=== PATIENT | male | born 1935 | race Caucasian/White ===

== ENCOUNTER 2017-08-28 15:05 | Emergency (ER) | payer MEDICARE ==
[2016-07-24 13:44] VITALS: BMI 28.2
--- NOTE | 2017-08-28 15:14 | ER Report ---
History and Physical Time Seen By MD: 15:14 HPI/ROS CHIEF COMPLAINT: Chest pain HISTORY OF PRESENT ILLNESS: 81-year-old male patient presents to emergency room with complaint of chest pain. Patient states that he developed chest pain today. Having also mentions he is had pain for the last 4 nights. He states is worse when he laid down. He states the pain seemed to radiate up into his neck and into his arms. He states that sitting up seemed to help considerably. Patient states that he woke this morning and just didn't feel right. He states he did go exercise and did not have any worsening of any of his symptoms. He states that he did develop some chest pain for which he took Tums. He states that that seemed to help with the pain. He denies any shortness of breath, nausea, vomiting or diarrhea. Patient states he's been able to exercise for the last 4 days without any difficulties. Patient states he initially thought that this was likely related to exercise and was a muscle strain. REVIEW OF SYSTEMS: Respiratory: No cough, no dyspnea. Cardiovascular: As noted above Gastrointestinal: No vomiting, no abdominal pain. Musculoskeletal: No back pain. Allergies: Coded Allergies: No Known Allergies (Verified Allergy, Mild, 01/11/12) Home Meds Active Scripts Spironolactone (SPIRONOLACTONE) 25 Mg Tablet, 1 TAB PO DAILY for 90 Days, #90 TAB 4 Refills Prov:EM GAN MD 07/15/17 Reported Medications Garlic (GARLIC) 1,000 Mg Capsule, 1 TAB PO DAILY, CAPSULE 05/28/17 Aspirin (ASPIR 81) 81 Mg Tablet.dr, 1 TAB PO QDAY, TAB 05/28/17 Cholecalciferol (Vitamin D3) (VITAMIN D) 2,000 Unit Tablet, 1 TAB PO DAILY 05/28/17 Vitamin E Acetate (VITAMIN E) 400 Unit Capsule, 1 CAP PO DAILY, CAPSULE 12/11/16 Multivit-Min/FA/Lycopen/Lutein (Centrum Silver Men Tablet) 300 Mcg-600 Mcg-300 Mcg Tablet, 1 TAB PO DAILY 12/11/16 Magnesium Oxide (MAGNESIUM) 250 Mg Tablet, 1 TAB PO DAILY 12/11/16 Cyanocobalamin (Vitamin B-12) (VITAMIN B-12) 1,000 Mcg Tablet, 1 TAB PO DAILY 12/11/16 Amlodipine Besylate (AMLODIPINE BESYLATE) 10 Mg Tablet, 1 TAB PO QDAY, TAB 12/11/16 Losartan Potassium (LOSARTAN POTASSIUM) 100 Mg Tablet, 1 TAB PO QDAY 06/04/16 Citalopram Hydrobromide (CITALOPRAM HBR) 20 Mg Tablet, 1 TAB PO QDAY 06/04/16 Discontinued Reported Medications Cetirizine Hcl (ZYRTEC) 10 Mg Tablet, 1 TAB PO QDAY, TAB 05/28/17 Past Medical/Surgical History Patient has a past medical history of hypertension, hayfever, hernia,, hepatitis , BPH, chronic back pain, alcohol use. Patient has surgical history of inguinal hernia repair, left knee surgery, right elbow surgery, L5-S1 laminectomy, tonsillectomy. Reviewed Nurses Notes: Yes Hx Smoking: No Smoking Status: Former Smoker Exposure to Second Hand Smoke?: No Hx Substance Use Disorder: No Hx Alcohol Use: Yes Constitutional Vital Sign - Last 24 Hours 08/28/17 08/28/17 08/28/17 08/28/17 15:10 15:10 15:20 15:30 Temp 98.7 Pulse 86 81 Resp 18 16 B/P (MAP) 152/92 152/94 (113) 134/83 (100) Pulse Ox 93 93 O2 Delivery Room Air 08/28/17 08/28/17 08/28/17 08/28/17 15:35 15:45 16:15 16:20 Pulse 80 76 Resp 16 11 B/P (MAP) 125/74 (91) 136/75 (95) Pulse Ox 92 08/28/17 08/28/17 08/28/17 08/28/17 16:30 16:35 16:45 16:50 Pulse 73 70 Resp 20 14 B/P (MAP) 134/78 (96) 134/78 (96) 08/28/17 08/28/17 08/28/17 17:00 17:05 18:15 Pulse 67 74 Resp 12 16 B/P (MAP) 138/87 (104) 140/80 (100) Intake and Output 08/28/17 08/28/17 08/29/17 14:59 22:59 06:59 Intake Total 500 ml Balance 500 ml Physical Exam General Appearance: The patient is alert, has no immediate need for airway protection and no current signs of toxicity. Respiratory: Chest is non tender, lungs are clear to auscultation. Cardiac: regular rate and rhythm Gastrointestinal: Abdomen is soft and non tender, no masses, bowel sounds normal. Musculoskeletal: Neck: Neck is supple and non tender. Extremities have full range of motion and are non tender. Skin: No rashes or lesions. DIFFERENTIAL DIAGNOSIS: After history and physical exam differential diagnosis was considered for chest pain including but not limited to myocardial ischemia, pericarditis pulmonary embolus, chest wall pain, pleural inflammation and pulmonary infectious causes. Medical Decision Making Data Points Result Diagram: 08/28/17 1315 08/28/17 1315 Laboratory Hematology Test 08/28/17 13:15 08/28/17 16:10 Red Blood Count 5.38 M/uL (4.00-5.60) Mean Corpuscular Volume 93.8 fL (80.0-96.0) Mean Corpuscular Hemoglobin 32.1 pg (26.0-33.0) Mean Corpuscular Hemoglobin Concent 34.2 g/dL (32.0-36.0) Red Cell Distribution Width 13.7 % (11.5-14.5) Mean Platelet Volume 9.5 fL (7.2-11.1) Neutrophils (%) (Auto) 66.3 % (39.4-72.5) Lymphocytes (%) (Auto) 22.0 % (17.6-49.6) Monocytes (%) (Auto) 8.1 % (4.1-12.4) Eosinophils (%) (Auto) 2.8 % (0.4-6.7) Basophils (%) (Auto) 0.8 % (0.3-1.4) Nucleated RBC Relative Count (auto) 0.0 /100WBC Neutrophils # (Auto) 8.8 K/uL (2.0-7.4) Lymphocytes # (Auto) 2.9 K/uL (1.3-3.6) Monocytes # (Auto) 1.1 K/uL (0.3-1.0) Eosinophils # (Auto) 0.4 K/uL (0.0-0.5) Basophils # (Auto) 0.1 K/uL (0.0-0.1) Nucleated RBC Absolute Count (auto) 0.00 K/uL Sodium Level 139 mmol/L (137-145) Potassium Level 3.7 mmol/L (3.5-5.0) Chloride Level 100 mmol/L (98-107) Carbon Dioxide Level 27 mmol/L (22-30) Blood Urea Nitrogen 24 mg/dl (9-21) Creatinine 1.50 mg/dl (0.66-1.25) Glomerular Filtration Rate Calc 44.9 Random Glucose 106 mg/dl (75-110) Calcium Level 9.4 mg/dl (8.4-10.2) Total Bilirubin 0.8 mg/dl (0.2-1.3) Aspartate Amino Transf (AST/SGOT) 28 U/L (0-35) Alanine Aminotransferase (ALT/SGPT) 29 U/L (0-56) Alkaline Phosphatase 72 U/L (0-126) Troponin I 0.412 ng/ml Total Protein 7.5 g/dl (6.3-8.2) Albumin 4.3 g/dl (3.5-5.0) Urine Color Yellow Urine Clarity Clear Urine pH 5.0 pH (4.8-9.5) Urine Specific [place] 1.012 Urine Protein Negative mg/dL (NEGATIVE) Urine Glucose (UA) Negative mg/dL (NEGATIVE) Urine Ketones Negative mg/dL (NEGATIVE) Urine Blood Negative (NEGATIVE) Urine Nitrite Negative (NEGATIVE) Urine Bilirubin Negative (NEGATIVE) Urine Urobilinogen Negative mg/dL (0.2-1.9) Urine Leukocyte Esterase Negative (NEGATIVE) Urine RBC <1 /HPF (0-2/HPF) Urine WBC 2 /HPF (0-5/HPF) Urine Squamous Epithelial Cells None /LPF (</=FEW) Urine Bacteria Negative /HPF (NONE-FEW) Urine Mucus None /HPF (NONE-FEW) Chemistry Test 08/28/17 13:15 08/28/17 16:10 White Blood Count 13.2 k/uL (4.5-11.0) Red Blood Count 5.38 M/uL (4.00-5.60) Hemoglobin 17.3 g/dL (14.0-18.0) Hematocrit 50.5 % (42.0-52.0) Mean Corpuscular Volume 93.8 fL (80.0-96.0) Mean Corpuscular Hemoglobin 32.1 pg (26.0-33.0) Mean Corpuscular Hemoglobin Concent 34.2 g/dL (32.0-36.0) Red Cell Distribution Width 13.7 % (11.5-14.5) Platelet Count 218 K/uL (150-450) Mean Platelet Volume 9.5 fL (7.2-11.1) Neutrophils (%) (Auto) 66.3 % (39.4-72.5) Lymphocytes (%) (Auto) 22.0 % (17.6-49.6) Monocytes (%) (Auto) 8.1 % (4.1-12.4) Eosinophils (%) (Auto) 2.8 % (0.4-6.7) Basophils (%) (Auto) 0.8 % (0.3-1.4) Nucleated RBC Relative Count (auto) 0.0 /100WBC Neutrophils # (Auto) 8.8 K/uL (2.0-7.4) Lymphocytes # (Auto) 2.9 K/uL (1.3-3.6) Monocytes # (Auto) 1.1 K/uL (0.3-1.0) Eosinophils # (Auto) 0.4 K/uL (0.0-0.5) Basophils # (Auto) 0.1 K/uL (0.0-0.1) Nucleated RBC Absolute Count (auto) 0.00 K/uL Glomerular Filtration Rate Calc 44.9 Calcium Level 9.4 mg/dl (8.4-10.2) Total Bilirubin 0.8 mg/dl (0.2-1.3) Aspartate Amino Transf (AST/SGOT) 28 U/L (0-35) Alanine Aminotransferase (ALT/SGPT) 29 U/L (0-56) Alkaline Phosphatase 72 U/L (0-126) Troponin I 0.412 ng/ml Total Protein 7.5 g/dl (6.3-8.2) Albumin 4.3 g/dl (3.5-5.0) Urine Color Yellow Urine Clarity Clear Urine pH 5.0 pH (4.8-9.5) Urine Specific [place] 1.012 Urine Protein Negative mg/dL (NEGATIVE) Urine Glucose (UA) Negative mg/dL (NEGATIVE) Urine Ketones Negative mg/dL (NEGATIVE) Urine Blood Negative (NEGATIVE) Urine Nitrite Negative (NEGATIVE) Urine Bilirubin Negative (NEGATIVE) Urine Urobilinogen Negative mg/dL (0.2-1.9) Urine Leukocyte Esterase Negative (NEGATIVE) Urine RBC <1 /HPF (0-2/HPF) Urine WBC 2 /HPF (0-5/HPF) Urine Squamous Epithelial Cells None /LPF (</=FEW) Urine Bacteria Negative /HPF (NONE-FEW) Urine Mucus None /HPF (NONE-FEW) Urinalysis Test 08/28/17 16:10 Urine Color Yellow Urine Clarity Clear Urine pH 5.0 pH (4.8-9.5) Urine Specific [place] 1.012 Urine Protein Negative mg/dL (NEGATIVE) Urine Glucose (UA) Negative mg/dL (NEGATIVE) Urine Ketones Negative mg/dL (NEGATIVE) Urine Blood Negative (NEGATIVE) Urine Nitrite Negative (NEGATIVE) Urine Bilirubin Negative (NEGATIVE) Urine Urobilinogen Negative mg/dL (0.2-1.9) Urine Leukocyte Esterase Negative (NEGATIVE) Urine RBC <1 /HPF (0-2/HPF) Urine WBC 2 /HPF (0-5/HPF) Urine Squamous Epithelial Cells None /LPF (</=FEW) Urine Bacteria Negative /HPF (NONE-FEW) Urine Mucus None /HPF (NONE-FEW) EKG/Imaging EKG Interpretation 12 lead EKG: Rhythm: Sinus rhythm with first-degree AV block, ventricular rate of 82 bpm [place]: normal QRS: Poor R-wave progression ST segments: Flattening of the T wave V1 through V6, does have ST depression in lead V4. Imaging CHEST PA AND LAT INDICATION: Chest Pain COMPARISON: 05/06/2016 FINDINGS: Heart size within normal limits. There is no focal infiltrate or lobar consolidation. There is no pneumothorax or pleural effusion. IMPRESSION: 1. No acute cardiopulmonary process. Report Dictated By: Yimi Armstrong at 08/28/2017 4:28 PM Report E-Signed By: Yimi Armstrong at 08/28/2017 4:29 PM HEAD W/O CONTRAST Provided history: arm pain bilaterally Additional pertinent history: none TECHNIQUE: Imaging was obtained from the skull base through the vertex without intravenous contrast. Source images were reformatted in the coronal sagittal planes. One of the following dose optimization techniques was utilized in the performance of this exam: Automated exposure control; adjustment of the mA and/ or kV according to the patient's size; or use of an iterative reconstruction technique. Specific details can be referenced in the facility's radiology CT exam operational policy. Additional imaging: none COMPARISON STUDIES: MRI 02/01/10 FINDINGS: Brain volume: There is prominence of the ventricles, sulci and fissures that is appropriate for age. Acute cortical ischemia: None Chronic cortical and ganglionic ischemia: none significant Hemorrhage: None Masses / edema: None White matter: Mild periventricular hypodensity without significant peripheral disease, nonspecific. Grossly unchanged from prior MRI. Vessels: All vessels are relatively dense likely reflecting a healthy hematocrit. No clear evidence of internal thrombus. Extra-axial: None significant Calvarium / scalp: Negative Skull base: negative Visualized sinuses / orbits: negative IMPRESSION: Age-appropriate changes. No evidence of mass, acute ischemia or hemorrhage. I am having the [facility]'s call the absence of acute findings to ANKUSH GIOVANNI for nj 08/28/2017 4:32 PM. Report Dictated By: Fam Vargas MD at 08/28/2017 4:32 PM Report E-Signed By: Fam Vargas MD at 08/28/2017 4:36 PM ED Course/Re-evaluation ED Course Patient was admitted and examined, history and physical were obtained. Differential diagnoses were considered. On examination lungs are clear, heart is regular, abdomen soft nontender. A CBC, CMP, EKG, chest x-ray, CT scan of the head, troponin, urinalysis were done. CBC showed a white count 13,000, CMP is unremarkable, EKG showed diffuse flattening of the T waves in V1 through V6, also patient had poor R-wave progression and ST depression in lead V4. The troponin came back elevated at 0.412. Patient did have a negative CT scan of the head. We checked that due to the patient stating that he was having difficult time articulating here in the emergency room. I discussed findings with patient. Due to the elevated troponin I feel the patient needs to be transferred to a higher level of care. We discussed options with the patient the patient requested to go to [facility]. I did speak with Dr. Chaves, hospitalist, at [facility]. He except the patient for transfer with the diagnosis of NSTEMI. We'll go ahead and transfer the patient to [facility] via ambulance. Discusses the patient who verbalized understanding and agreement with plan. Decision to Disposition Date: Aug 28, 2017 Decision to Disposition Time: 16:43 Depart Departure Latest Vital Signs Vital Signs Date Time Temp Pulse Resp B/P (MAP) Pulse Ox O2 Delivery O2 Flow Rate FiO2 08/28/17 18:15 74 16 140/80 (100) 08/28/17 15:35 92 08/28/17 15:10 98.7 Room Air Impression: Primary Impression: NSTEMI (non-ST elevated myocardial infarction) Condition: Condition Unchanged Disposition: XFER TO [facility]UTE [facility]ARE [facility] Referrals: EM GAN MD (PCP) ANKUSH DAVILA Aug 28, 2017 15:14
[2017-08-28] MEDS ORDERED: ASPIRIN 81 MG CHEW PO ONE (15:15)
--- NOTE | 2017-08-28 15:20 | EKG ---
FACILITY: [facility] PATIENT NAME: SESAR JACK : [id number] MR: [id number] V: [id number] EXAM DATE: ORDERING PHYSICIAN: ANKUSH DAVILA TECHNOLOGIST: Test Reason : Blood Pressure : / mmHG Vent. Rate : 082 BPM Atrial Rate : 082 BPM P-R Int : 376 ms QRS Dur : 096 ms QT Int : 398 ms P-R-T Axes : 046 -09 113 degrees QTc Int : 464 ms Sinus rhythm with 1st degree AV block Cannot rule out Anterior infarct , age undetermined ST and T wave abnormality, consider lateral ischemia Abnormal ECG When compared with ECG of 06-MAY-2016 09:19, premature ventricular complexes are no longer present T wave inversion now evident in Anterior leads Confirmed by MARKELL PIPER ([id number]) on 08/28/2017 9:58:23 PM Referred By: Confirmed By:MARKELL PIPER
[2017-08-28 15:25] LABS: PLATELET COUNT, AUTOMATED 218 K/uL (150-450)
[2017-08-28] MEDS ORDERED: NS(*) 0.9% 500 ML BAG 500 ML IV ONE (15:40)
--- NOTE | 2017-08-28 16:33 | RADIOLOGY IMAGING REPORT ---
FACILITY: [facility] [place] PATIENT NAME: Boubacar Ashley : 1935 MR: [id number] V: [id number] EXAM DATE: ORDERING PHYSICIAN: ANKUSH DAVILA TECHNOLOGIST: Location: [facility] [place] Patient: Boubacar Ashley : 1935 Visit/Account:[id number] Date of Sevice: 08/28/2017 CHEST PA AND LAT INDICATION: Chest Pain COMPARISON: 05/06/2016 FINDINGS: Heart size within normal limits. There is no focal infiltrate or lobar consolidation. There is no pneumothorax or pleural effusion. IMPRESSION: 1. No acute cardiopulmonary process. Report Dictated By: Yimi Armstrong at 08/28/2017 4:28 PM Report E-Signed By: Yimi Armstrong at 08/28/2017 4:29 PM WSN:[id number]
--- NOTE | 2017-08-28 16:41 | RADIOLOGY IMAGING REPORT ---
FACILITY: [facility] [place] PATIENT NAME: Boubacar Ashley : 1935 MR: [id number] V: [id number] EXAM DATE: ORDERING PHYSICIAN: ANKUSH DAVILA TECHNOLOGIST: Location: [facility] [place] Patient: Boubacar Ashley : 1935 Visit/Account:[id number] Date of Sevice: 08/28/2017 HEAD W/O CONTRAST Provided history: arm pain bilaterally Additional pertinent history: none TECHNIQUE: Imaging was obtained from the skull base through the vertex without intravenous contrast. Source images were reformatted in the coronal sagittal planes. One of the following dose optimization techniques was utilized in the performance of this exam: Autom ated exposure control; adjustment of the mA and/or kV according to the patient's size; or use of an i terative reconstruction technique. Specific details can be referenced in the facility's radiology CT exam operational policy. Additional imaging: none COMPARISON STUDIES: MRI 02/01/10 FINDINGS: Brain volume: There is prominence of the ventricles, sulci and fissures that is appropriate for age. Acute cortical ischemia: None Chronic cortical and ganglionic ischemia: none significant Hemorrhage: None Masses / edema: None White matter: Mild periventricular hypodensity without significant peripheral disease, nonspecific. Grossly unchanged from prior MRI. Vessels: All vessels are relatively dense likely reflecting a healthy hematocrit. No clear evidence of internal thrombus. Extra-axial: None significant Calvarium / scalp: Negative Skull base: negative Visualized sinuses / orbits: negative IMPRESSION: Age-appropriate changes. No evidence of mass, acute ischemia or hemorrhage. I am having the [facility]'s call the absence of acute findings to ANKUSH DAVILA for pa 08/28/2017 4:32 PM. Report Dictated By: Fam Vargas MD at 08/28/2017 4:32 PM Report E-Signed By: Fam Vargas MD at 08/28/2017 4:36 PM WSN:[id number]
[2017-08-28 18:15] VITALS: BP 140/80
== END 2017-08-28 18:25 | disposition short-term general hospital (02) ==
LOC: ER 15:17
DX: I21.4 Non-ST elevation (NSTEMI) myocardial infarction (principal); I10 Essential (primary) hypertension
CPT/HCPCS: 70450; 71046; 81001; 84484; 85025; 93005; 96360; 99285; A9270; J7040; 82040; 82247; 82310; 82374; 82435; 82565; 82947; 84075; 84132; 84155; 84295; 84450; 84460; 84520

== ENCOUNTER → 2017-08-28 | Outpatient (CLI) | payer MEDICARE ==
[2016-07-24 13:44] VITALS: BMI 28.2
[~2017-08-28] MED LIST: AMLO-99 PO; ASPI-1471 PO; ASPI-764 PO; ASPI81TA94 PO; ATEN-65 PO; ATOR20TA65 PO; BENZ60GE TP; Beet Root PO; CETI-176 PO; CHOL10005 PO; CHOL200022 PO; CITA-145 PO; CITA-155 PO; CLON-303 PO; CYA1000 PO; DIAZ2TAB72 PO; DIPH-464 PO; DIPH-741 PO; DOCU-416 PO; FISH1CAP15 PO; GARL10005 PO; GARL100T2 PO; GLUC-198 PO; IBUP600T22 PO; LIS20 PO; LOSA100T67 PO; MAGN250T34 PO; MULT-60 PO; MULT-768 PO; NAPR-1043 PO; OMEG1CAP35 PO; OMEG1CAP39 PO; OXYC-865 PO; POTA99TA6 PO; SPIR25TA80 PO; TURM500C4 PO; VITA-200 PO; ZOL5 PO; [UNRECOGNIZED DRUG - OTHER] PO
== END ==
LOC: AMB 18:11
PROVIDERS: ATTEND Nurse Practitioner
DX: R79.89 Other specified abnormal findings of blood chemistry (principal)
CPT/HCPCS: A0425; A0426

== ENCOUNTER 2017-09-11 11:16 | Inpatient (IN) | payer MEDICARE ==
[2016-07-24 13:44] VITALS: Ht 182.9 cm; Wt 89.4 kg
[~2017-09-11] VITALS: Ht 182.9 cm; Wt 89.4 kg
[2017-09-11 14:20] VITALS: BP 121/59
[2017-09-11] MEDS ORDERED: HYPROMELLOSE 0.4% LUB 15ML BTL OU PRN (14:40)
[2017-09-11] MEDS ORDERED: NITROGLYCERIN 0.4 MG SUBL SL PRN (14:40)
--- NOTE | 2017-09-11 15:16 | History & Physical ---
History of Present Illness Chief Complaint Rehab following coronary bypass surgery History of Present Illness 81yo male with PMHx significant for CAD s/p recent CABG at [facility]. He underwent bypass surgery earlier this month. His post-op course was notable for urinary retention and some generalized weakness. He will be admitted to [facility] for ongoing rehabilitative therapy. He states he has not had any CP/SOB/palpitations. He has been mobilizing. He does still have a Fernandez cath in place. His sternotomy, chest tube, and SVG harvest wounds are all healing well (sutures have been removed). History Problems: (1) CAD (coronary artery disease) Status: Chronic (2) S/P CABG x 5 Status: Acute (3) Hypertension Status: Chronic (4) BPH (benign prostatic hyperplasia) Status: Chronic (5) NSTEMI (non-ST elevated myocardial infarction) Status: Acute (6) S/P total knee arthroplasty Status: Resolved Home Meds Active Scripts Spironolactone (SPIRONOLACTONE) 25 Mg Tablet, 1 TAB PO DAILY for 90 Days, #90 TAB 4 Refills Prov:EM GAN MD 07/15/17 Reported Medications Garlic (GARLIC) 1,000 Mg Capsule, 1 TAB PO DAILY, CAPSULE 05/28/17 Aspirin (ASPIR 81) 81 Mg Tablet.dr, 1 TAB PO QDAY, TAB 05/28/17 Cholecalciferol (Vitamin D3) (VITAMIN D) 2,000 Unit Tablet, 1 TAB PO DAILY 05/28/17 Vitamin E Acetate (VITAMIN E) 400 Unit Capsule, 1 CAP PO DAILY, CAPSULE 12/11/16 Multivit-Min/FA/Lycopen/Lutein (Centrum Silver Men Tablet) 300 Mcg-600 Mcg-300 Mcg Tablet, 1 TAB PO DAILY 12/11/16 Magnesium Oxide (MAGNESIUM) 250 Mg Tablet, 1 TAB PO DAILY 12/11/16 Cyanocobalamin (Vitamin B-12) (VITAMIN B-12) 1,000 Mcg Tablet, 1 TAB PO DAILY 12/11/16 Amlodipine Besylate (AMLODIPINE BESYLATE) 10 Mg Tablet, 1 TAB PO QDAY, TAB 12/11/16 Losartan Potassium (LOSARTAN POTASSIUM) 100 Mg Tablet, 1 TAB PO QDAY 06/04/16 Citalopram Hydrobromide (CITALOPRAM HBR) 20 Mg Tablet, 1 TAB PO QDAY 06/04/16 Allergies: Coded Allergies: No Known Allergies (Verified Allergy, Mild, 01/11/12) Patient History: FH: breast cancer MOTHER, , Age:84 FH: melanoma FATHER, , Age:89 FH: multiple sclerosis BROTHER OR SISTER FH: pulmonary embolism BROTHER OR SISTER Patient's brother is in good health CHILD Patient's sister is in good health CHILD CHILD Hx Smoking: Yes Smoking Status: Former Smoker Exposure to Second Hand Smoke?: No Caffeine Intake: Coffee, Tea Caffeine/Cups Per Day: occasional Hx Alcohol Use: Yes Alcohol Used: Liquor Hx Substance Use Disorder: No Social Drug Use: Never Review of Systems Cardiovascular: No Chest Pain, No Palpitations Respiratory: No Shortness of Breath Exam Vital Signs Vital Signs Date Time Temp Pulse Resp B/P (MAP) Pulse Ox O2 Delivery O2 Flow Rate FiO2 09/11/17 14:20 98.3 71 16 121/59 (79) 93 Room Air General Appearance: Alert, Awake Neuro: No Gross deficits ENT: Oropharynx Clear, Other (face symmetric) Neck: No Masses, Other (IJ site well healed) Cardiovascular: Regular Rate and Rhythm (somewhat distant tones) Respiratory: Clear to Auscultation Chest: Other (sternotomy incision healing well/clean and dry) GI: Abd Soft and Non-Tender Extremities: Warm, Perfused Integumentary: Other (right SVG harvest site healing well/clean and dry) Psych: Alert & Oriented X3 Assessment and Plan Problems: (1) S/P CABG x 5 Status: Acute Assessment & Plan: He appears to be progressing fairly well. He will have PT/ OT. Incisions all look good. He will have follow up with cardiology/CV surgery as planned. (2) CAD (coronary artery disease) Status: Chronic Assessment & Plan: He will continue on his beta torri, antiplatelet therapy. (3) Hypertension Status: Chronic Assessment & Plan: He is now om amlodipine and metoprolol. Will monitor and modify if needed. (4) BPH (benign prostatic hyperplasia) Status: Chronic Assessment & Plan: He has been started on Flomax. He currently has a Fernandez cath in place. The urologist wanted to have the cath in place for a few more days. Will plan on a trial of voiding in 2-3 days. Copies to: EM GAN MD Venous Thromboembolism Antithrombotics Is Pt On Any Antithrombotics?: Yes GISELL BERGMAN MD Sep 11, 2017 15:16
--- NOTE | 2017-09-11 17:17 | Consultant Pharmacy Review ---
Test Center Manager Review Medication Review Do All Mecications have a Diag: Yes Other General Cautions known interaction C = Monitor therapy X = Avoid combination B = No action needed D = Consider therapy modification Drugs in this analysis: Aspir-low [OTC]; Cholecalciferol; Citalopram; Cyanocobalamin; Flomax; Garlic; Keflex; Lopressor; Lortab; Magnesium Oxide; Nitroglycerin; Norvasc; Plavix; Spironolactone; Vitamin E (Systemic) * Drug-Drug Interactions * D Aspir-low [OTC] (Agents with Antiplatelet Properties) Garlic (Herbs ( Anticoagulant/Antiplatelet Properties)) D Aspir-low [OTC] (Salicylates) Garlic (Herbs (Anticoagulant/Antiplatelet Properties)) D Citalopram (Agents with Antiplatelet Properties) Garlic (Herbs ( Anticoagulant/Antiplatelet Properties)) D Garlic (Herbs (Anticoagulant/Antiplatelet Properties)) Plavix (Agents with Antiplatelet Properties) C Aspir-low [OTC] (Agents with Antiplatelet Properties) Plavix (Agents with Antiplatelet Properties) Depends on International labeling C Aspir-low [OTC] (Agents with Antiplatelet Properties) Vitamin E (Systemic) C Aspir-low [OTC] (Aspirin) Citalopram (Selective Serotonin Reuptake Inhibitors) C Aspir-low [OTC] (Salicylates) Plavix (Agents with Antiplatelet Properties) C Citalopram (Agents with Antiplatelet Properties) Plavix (Agents with Antiplatelet Properties) Depends on International labeling C Citalopram (Agents with Antiplatelet Properties) Vitamin E (Systemic) C Citalopram (Selective Serotonin Reuptake Inhibitors) Lortab (SOCIAL SERVICES ANALYST Depressants ) C Citalopram (Serotonin Modulators) Lortab (Opioid Analgesics) C Flomax (Alpha1-Blockers) Lopressor (Beta-Blockers) Depends on Dosage Form C Flomax (Alpha1-Blockers) Norvasc (Calcium Channel Blockers) C Flomax (Blood Pressure Lowering Agents) Nitroglycerin (Hypotension- Associated Agents) C Flomax (Hypotension-Associated Agents) Lopressor (Blood Pressure Lowering Agents) C Flomax (Hypotension-Associated Agents) Norvasc (Blood Pressure Lowering Agents) C Flomax (Hypotension-Associated Agents) Spironolactone (Blood Pressure Lowering Agents) C Lopressor (Blood Pressure Lowering Agents) Nitroglycerin (Hypotension- Associated Agents) C Lortab (Opioid Analgesics) Spironolactone (Diuretics) C Magnesium Oxide (Magnesium Salts) Norvasc (Calcium Channel Blockers) C Nitroglycerin (Hypotension-Associated Agents) Norvasc (Blood Pressure Lowering Agents) C Nitroglycerin (Hypotension-Associated Agents) Spironolactone (Blood Pressure Lowering Agents) C Norvasc (Calcium Channel Blockers) Plavix (Clopidogrel) C Plavix (Agents with Antiplatelet Properties) Vitamin E (Systemic) B Aspir-low [OTC] (Aspirin) Nitroglycerin Depends on Dose A Aspir-low [OTC] (Salicylates) Spironolactone (Potassium-Sparing Diuretics) Disclaimer: Readers are advised that decisions regarding drug therapy must be based on the independent judgment of the clinician, changing information about a drug (eg, as reflected in the literature and rental sales agent's most current product information), and changing medical practices. * Terms & Conditions // * Disclaimer// * Privacy Policy * [employer] on [employer] * [employer] on [employer] * Get [employer] 2018 [employer] and its affiliates and/or licensors. All Rights Reserved. * Top of Form 1 * Bottom of Form 1 Pneumococcal Vaccine HX Pneumo Vac ([id number]): Yes (11/2014) HX Pneumo Vac (Pneumovax): Yes (11/2015) LARS ZIEGLER Sep 11, 2017 17:17
[2017-09-11] MEDS: CEPHALEXIN MONO 500 MG CAP PO SCH ×2 (17:18→20:22)
[2017-09-11] MEDS: METOPROLOL TART 50 MG TAB PO SCH (20:22)
[2017-09-11] MEDS: SPIRONOLACTONE 25 MG TAB PO SCH (20:28)
[2017-09-11] MEDS: APAP/HYDROCODONE 325/5 TAB PO PRN (20:28)
[2017-09-11] MEDS: CITALOPRAM HYDROBROM 20 MG TAB PO SCH (20:28)
[2017-09-11] MEDS ORDERED: MAGNESIUM OXIDE 400 MG TAB PO SCH (21:00)
[2017-09-12 08:30] VITALS: BP 100/57
[2017-09-12] MEDS: CEPHALEXIN MONO 500 MG CAP PO SCH ×4 (08:56→21:10)
[2017-09-12] MEDS: METOPROLOL TART 50 MG TAB PO SCH ×2 (08:56→21:10)
[2017-09-12] MEDS: TAMSULOSIN HCL 0.4 MG CAP PO SCH (08:57)
[2017-09-12] MEDS: MULTIVITAMINS TAB PO SCH (08:57)
[2017-09-12] MEDS: VITAMIN E 400 INTLU CAP PO SCH (08:57)
[2017-09-12] MEDS: CHOLECALCIFEROL 1000 UNIT TAB PO SCH (08:57)
[2017-09-12] MEDS: CYANOCOBALAMIN 1000 MCG TAB PO SCH (08:57)
[2017-09-12] MEDS: amLODIPine BESYL(*) 5 MG TAB PO SCH (08:57)
[2017-09-12] MEDS: ASPIRIN 81 MG ENTERIC COATED PO SCH (08:57)
[2017-09-12] MEDS: CLOPIDOGREL BISULFATE 75MG TAB PO SCH (08:57)
[2017-09-12] MEDS: MAGNESIUM OXIDE 400 MG TAB PO SCH ×2 (08:58→21:10)
[2017-09-12] MEDS: GARLIC 1000 MG PO SCH (09:00)
[2017-09-12] MEDS ORDERED: PATIENT'S OWN MED PO SCH (09:00)
--- NOTE | 2017-09-12 12:37 | Medical Nutrition Therapy ---
Nutrition Anthropometrics Height (Inches): 72.00 Height (Calculated Centimeters: 182.708186 Weight (Pounds): 202 Weight (Calculated Kilograms): 91.626 BMI: 27.4 Demetri Nutrition Score: Adequate Demetri Nutrition Risk Score: 20 Dietary Referral Nutrition Risk Factors: Nutrition Risk Comment: Physical Findings Physical Appearance: Overweight BMI 25-29 Skin Appearance Skin Appearance: Edema Edema Location Modifier: Both Edema Location: Type of Edema: Degree of Edema: 1+ Gastrointestinal Symptoms GI Symtoms: Tube Present: Bowel Sounds: Recent Bowel Pattern: Stool Characteristics: Nutritional Diagnosis Nutritional Risk Acuity 3: OR & > 80 yrs Nutritional Risk Acuity 4: Good Appetite Past Medical History: CAD Nutritional Acuity: 3-Mild Adjusted Energy Requirement Re: 2160 Protein Requirement: 73 (.8gm/kg) Nutrition Intervention: Cont diet as ordered, Encourage intake, HS snack Drug: Diuretics Nutrition Monitoring & Eval Nutrition Goals: Eat 75-100% Meal RD Patient Assessment Time: [address] Assessment Type: RD Assessment Patient Nutrition Acuity: 2-Moderate Follow Up Date: Sep 12, 2017 Nutritional Comment: Pt admitted s/p recent CABG. Pt on cardiac diet and eating 75-100% of meals. Alb WNR, Creatinine eleavted at 1.5, BUN elevated at 25. Pt is on K+ sparing duiretic. K+ is WNR. cont to monitor and encourage intake. HITESH PINTO Sep 12, 2017 12:37
[2017-09-12 15:00] VITALS: BP 104/67
--- NOTE | 2017-09-12 17:17 | OT ECF NOTE ---
Type of Note: Initial Note Primary Medical Diagnosis: Weakness s/p NSTEMI and CABGx5 Sternal Precautions Avoid: (for 6 weeks postop) Lifting, pushing, or pulling anything over 5 pounds Using arms to push self into an upright position Repetitive arm movements (i.e. scrubbing movements) Lifting overhead with both arms Taking baths or hot tubs Driving, until cleared by surgeon Occupational Therapy Evaluation Date: 09/12/17 SUBJECTIVE: Prior Hospitalization: [facility] 08/28/17 thru 09/11/17 Prior Level of Function: Modified Independent with all ADLs/IADLs. Ambulating with cane on occasion. Prior Living Status: Apartment, Alone Community Services: No known needs Home Accessibility: Stairs with rails-19 steps to enter apartment Tub/shower combination Equipment Owned: Cane, Shower chair, Toilet riser Medical Complications/Past Medical History: Please refer to EMR Psychosocial Support: Supportive friends in [place] Pain Scale (0-10): No report of pain at time of evaluation. OBJECTIVE: Strength: N/T due to sternal precautions MMT: Right Left Shoulder Flexion [*] [*] Elbow Flexion [*] [*] Wrist Extension [*] [*] Brief Writer [*] [*] (5= normal, 4= good, 3= fair, 2= poor, 1= trace) ROM: Both upper extremities Moderately limited secondary to sternal precautions Functional Transfer: Assistive Device: Front wheeled walker, Gait belt Transfer Ability: N/T. Pt adamantly refusing to get OOB as he was fatigued and desired a nap ADL: Upper body dressing: Assistive device: Upper body dressing ability: Lower body dressing: Assistive device: Lower body dressing ability: Toileting: Assistive device: Toileting ability: Grooming/hygiene: Assistive device: Grooming ability: Bathing: Assistive device: Bathing ability: Standardized Assessment: Rebecca Index of Activities of Daily Livin/20 upon initial evaluation (). ASSESSMENT: "Aime" presents to [facility] requiring increased assist for ADLs/IADLs secondary to generalized weakness from recent CABG. At [facility], he was Mod (I) for all ADLs/IADLs and was ambulating community distances daily. Pt is able to recite all sternal precautions. However, during subjective evaluation, pt was noted to be breaking precautions and requiring v/c's for adherence. He will benefit from skilled OT services to optimize (I) with ADLs and improve safety awareness/adherence to sternal precautions prior to discharge home alone. Problem List/Current Limitations: Pain Decreased activity tolerance Decreased strength Generalized weakness Abnormal tonal influence Poor safety awareness Short Term Goals: 1) Pt will be Mod (I) UB/LB dressing. 2) Pt will be Mod (I) toilet task. 3) Pt will be Independent grooming/hygiene. 4) Pt will be Mod (I) shower task. 5) Pt Rebecca Index of ADLs score will improve by 2 points. 6) Pt will be Mod (I) light meal prep. Long-Term Goals: Return home with possible services Patient Goals: "Start walking more" Rehabilitation Prognosis: Good Barriers to Discharge: Medical history, compliance with precautions PLAN: The patient will benefit from skilled occupational therapy services 5 times per week for 2 weeks including: Ther ex ADL training Safety training Ther act IADL training Transfer training Adaptive equip training Bed mobility Energy conservation Thank you for this referral. If you have any questions, concerns, or comments about this report or plan, please contact me at . Isabela Shields MS, OTR/L Occupational Therapist [facility]
[2017-09-12] MEDS ORDERED: MULT-28 PO (18:59)
[2017-09-12] MEDS: CITALOPRAM HYDROBROM 20 MG TAB PO SCH (21:09)
[2017-09-12] MEDS: SPIRONOLACTONE 25 MG TAB PO SCH (21:09)
[2017-09-13] MEDS: APAP/HYDROCODONE 325/5 TAB PO PRN ×2 (04:03→20:49)
[2017-09-13 08:15] VITALS: BP 111/65
[2017-09-13] MEDS: GARLIC 1000 MG PO SCH (09:00)
[2017-09-13] MEDS: CEPHALEXIN MONO 500 MG CAP PO SCH ×4 (09:34→20:49)
[2017-09-13] MEDS: CHOLECALCIFEROL 1000 UNIT TAB PO SCH (09:34)
[2017-09-13] MEDS: MAGNESIUM OXIDE 400 MG TAB PO SCH ×2 (09:34→20:49)
[2017-09-13] MEDS: CLOPIDOGREL BISULFATE 75MG TAB PO SCH (09:34)
[2017-09-13] MEDS: amLODIPine BESYL(*) 5 MG TAB PO SCH (09:35)
[2017-09-13] MEDS: TAMSULOSIN HCL 0.4 MG CAP PO SCH (09:35)
[2017-09-13] MEDS: ASPIRIN 81 MG ENTERIC COATED PO SCH (09:35)
[2017-09-13] MEDS: VITAMIN E 400 INTLU CAP PO SCH (09:35)
[2017-09-13] MEDS: CYANOCOBALAMIN 1000 MCG TAB PO SCH (09:35)
[2017-09-13] MEDS: METOPROLOL TART 50 MG TAB PO SCH ×2 (09:36→20:49)
[2017-09-13] MEDS: MULTIVITAMINS TAB PO SCH (09:36)
[2017-09-13 15:57] VITALS: BP 119/61
[2017-09-13] MEDS: SPIRONOLACTONE 25 MG TAB PO SCH (20:49)
[2017-09-13] MEDS: CITALOPRAM HYDROBROM 20 MG TAB PO SCH (20:50)
[2017-09-13] MEDS: MELATONIN 3 MG TAB PO PRN (20:50)
[2017-09-14 07:40] VITALS: BP 115/72
[2017-09-14] MEDS: GARLIC 1000 MG PO SCH (09:00)
[2017-09-14] MEDS: CLOPIDOGREL BISULFATE 75MG TAB PO SCH (09:14)
[2017-09-14] MEDS: APAP/HYDROCODONE 325/5 TAB PO PRN ×2 (09:15→20:28)
[2017-09-14] MEDS: MAGNESIUM OXIDE 400 MG TAB PO SCH ×2 (09:15→20:28)
[2017-09-14] MEDS: VITAMIN E 400 INTLU CAP PO SCH (09:16)
[2017-09-14] MEDS: ASPIRIN 81 MG ENTERIC COATED PO SCH (09:16)
[2017-09-14] MEDS: METOPROLOL TART 50 MG TAB PO SCH ×2 (09:16→20:28)
[2017-09-14] MEDS: CHOLECALCIFEROL 1000 UNIT TAB PO SCH (09:16)
[2017-09-14] MEDS: amLODIPine BESYL(*) 5 MG TAB PO SCH (09:16)
[2017-09-14] MEDS: CYANOCOBALAMIN 1000 MCG TAB PO SCH (09:16)
[2017-09-14] MEDS: CEPHALEXIN MONO 500 MG CAP PO SCH ×4 (09:16→20:27)
[2017-09-14] MEDS: MULTIVITAMINS TAB PO SCH (09:16)
[2017-09-14] MEDS: TAMSULOSIN HCL 0.4 MG CAP PO SCH (09:16)
--- NOTE | 2017-09-14 13:11 | Medical Nutrition Therapy ---
Nutrition Anthropometrics Height (Inches): 72.00 Height (Calculated Centimeters: 182.806589 Weight (Pounds): 202 Weight (Calculated Kilograms): 91.711 BMI: 27.4 Demetri Nutrition Score: Adequate Demetri Nutrition Risk Score: 20 Dietary Referral Nutrition Risk Factors: Nutrition Risk Comment: Physical Findings Physical Appearance: Overweight BMI 25-29 Skin Appearance Skin Appearance: Edema Edema Location Modifier: Both Edema Location: Lower Extremity Type of Edema: Degree of Edema: 1+ Gastrointestinal Symptoms GI Symtoms: Tube Present: Bowel Sounds: Recent Bowel Pattern: Stool Characteristics: Nutrition/Food History No Significant Nutr. HX Nutritional Diagnosis Nutritional Risk Acuity 3: OR & > 80 yrs Nutritional Risk Acuity 4: Good Appetite Past Medical History: CAD Nutritional Acuity: 3-Mild Adjusted Energy Requirement Re: 2160 Protein Requirement: 73 (.8gm/kg) Nutrition Intervention: Cont diet as ordered, Encourage intake, HS snack Drug: Diuretics Nutrition Monitoring & Eval Nutrition Goals: Eat 50-100% Meal RD Patient Assessment Time: [address] Assessment Type: RD Assessment Patient Nutrition Acuity: 2-Moderate Follow Up Date: Sep 16, 2017 Nutritional Comment: Pt admitted s/p recent CABG. Pt on cardiac diet and eating 75-100% of meals. Alb WNR, Creatinine eleavted at 1.5, BUN elevated at 25. Pt is on K+ sparing duiretic. K+ is WNR. cont to monitor and encourage intake. 09/14 Consuming 50-100% of cardiac diet. No new labs. Follow intake, labs, etc. -OSVALDO GUZMAN Sep 14, 2017 13:11
[2017-09-14 15:20] VITALS: BP 102/61
[2017-09-14] MEDS ORDERED: MAGNESIUM HYDROXIDE* 30ML UDCP PO PRN (16:40)
[2017-09-14] MEDS ORDERED: BISACODYL 10 MG SUPP PR PRN (16:40)
[2017-09-14] MEDS: POLYETHYLENE GLYCOL 17 GM PKT PO SCH (16:52)
[2017-09-14] MEDS: MELATONIN 3 MG TAB PO PRN (20:28)
[2017-09-14] MEDS: CITALOPRAM HYDROBROM 20 MG TAB PO SCH (20:28)
[2017-09-14] MEDS: SPIRONOLACTONE 25 MG TAB PO SCH (20:28)
[2017-09-14] MEDS: DOCUSATE SODIUM 100 MG CAP PO SCH (20:28)
[2017-09-15] MEDS: APAP/HYDROCODONE 325/5 TAB PO PRN ×3 (03:12→21:16)
[2017-09-15 06:57] LABS: PLATELET COUNT, AUTOMATED 311 K/uL (150-450)
[2017-09-15 07:50] VITALS: BP 107/67
[2017-09-15] MEDS: TAMSULOSIN HCL 0.4 MG CAP PO SCH (08:48)
[2017-09-15] MEDS: POLYETHYLENE GLYCOL 17 GM PKT PO SCH (08:48)
[2017-09-15] MEDS: CHOLECALCIFEROL 1000 UNIT TAB PO SCH (08:48)
[2017-09-15] MEDS: VITAMIN E 400 INTLU CAP PO SCH (08:48)
[2017-09-15] MEDS: amLODIPine BESYL(*) 5 MG TAB PO SCH (08:48)
[2017-09-15] MEDS: DOCUSATE SODIUM 100 MG CAP PO SCH ×2 (08:49→21:15)
[2017-09-15] MEDS: CLOPIDOGREL BISULFATE 75MG TAB PO SCH (08:49)
[2017-09-15] MEDS: METOPROLOL TART 50 MG TAB PO SCH ×2 (08:49→21:15)
[2017-09-15] MEDS: GARLIC 1000 MG PO SCH (08:49)
[2017-09-15] MEDS: MAGNESIUM OXIDE 400 MG TAB PO SCH ×2 (08:49→21:15)
[2017-09-15] MEDS: MULTIVITAMINS TAB PO SCH (08:49)
[2017-09-15] MEDS: CYANOCOBALAMIN 1000 MCG TAB PO SCH (08:49)
[2017-09-15] MEDS: ASPIRIN 81 MG ENTERIC COATED PO SCH (08:49)
[2017-09-15] MEDS: CEPHALEXIN MONO 500 MG CAP PO SCH ×4 (08:49→21:15)
--- NOTE | 2017-09-15 11:05 | Medical Nutrition Therapy ---
Nutrition Anthropometrics Height (Inches): 72.00 Height (Calculated Centimeters: 182.303585 Weight (Pounds): 202 Weight (Calculated Kilograms): 91.711 BMI: 27.4 Demetri Nutrition Score: Adequate Demetri Nutrition Risk Score: 21 Dietary Referral Nutrition Risk Factors: Nutrition Risk Comment: Physical Findings Physical Appearance: Overweight BMI 25-29 Skin Appearance Skin Appearance: Edema Edema Location Modifier: Both Edema Location: Lower Extremity Type of Edema: Degree of Edema: 1+ Gastrointestinal Symptoms GI Symtoms: Tube Present: Bowel Sounds: Recent Bowel Pattern: Stool Characteristics: Nutritional Diagnosis Nutritional Risk Acuity 3: OR & > 80 yrs Nutritional Risk Acuity 4: Good Appetite Past Medical History: CAD Nutritional Acuity: 3-Mild Adjusted Energy Requirement Re: 2160 Protein Requirement: 73 (.8gm/kg) Fluid Requirement: 2275 (25ml/kg) Nutrition Intervention: Cont diet as ordered, Encourage intake, HS snack Drug: Diuretics Nutrition Monitoring & Eval Nutrition Goals: Eat 75-100% Meal Nutrition Follow-Up: Good Intake, Fair Intake RD Patient Assessment Time: [address] Assessment Type: RD Re-Assessment Patient Nutrition Acuity: 2-Moderate Follow Up Date: Sep 23, 2017 Nutritional Comment: Pt admitted s/p recent CABG. Pt on cardiac diet and eating 75-100% of meals. Alb WNR, Creatinine eleavted at 1.5, BUN elevated at 25. Pt is on K+ sparing duiretic. K+ is WNR. cont to monitor and encourage intake. 09/14 Consuming 50-100% of cardiac diet. No new labs. Follow intake, labs, etc. -DRT 09/15 Cont intake 50- 100% of cardiac diet. Alb 3. Pt has non pitting edema LE. Pt may have wt loss when edema resolved. Will cont to monitor and encourage intake. HITESH TIERNEY Sep 15, 2017 11:05
[2017-09-15 14:28] VITALS: BP 114/62
[2017-09-15] MEDS ORDERED: ALPRAZolam 0.5 MG TAB PO ONE (15:10)
--- NOTE | 2017-09-15 17:23 | EKG ---
FACILITY: [facility] PATIENT NAME: SESAR JACK : [id number] MR: [id number] V: [id number] EXAM DATE: ORDERING PHYSICIAN: MARKELL PIPER TECHNOLOGIST: Test Reason : sob Blood Pressure : / mmHG Vent. Rate : 076 BPM Atrial Rate : 076 BPM P-R Int : 378 ms QRS Dur : 092 ms QT Int : 388 ms P-R-T Axes : 032 047 133 degrees QTc Int : 436 ms Sinus rhythm with 1st degree AV block T wave abnormality, consider anterolateral ischemia Abnormal ECG When compared with ECG of 28-AUG-2017 15:16, Minimal criteria for Anterior infarct are no longer present ST no longer depressed in Anterolateral leads T wave inversion more evident in Anterolateral leads Confirmed by MARKELL PIPER ([id number]) on 09/15/2017 5:25:03 PM Referred By: Confirmed By:MARKELL PIPER
--- NOTE | 2017-09-15 20:35 | PT ECF NOTE ---
Type of Note: Initial Note Primary Medical Diagnosis: Weakness s/p NSTEMI and CABGx5 Sternal Precautions Avoid: (for 6 weeks postop) Lifting, pushing, or pulling anything over 5 pounds Using arms to push self into an upright position Repetitive arm movements (i.e. scrubbing movements) Lifting overhead with both arms Taking baths or hot tubs Driving, until cleared by surgeon Physical Therapy Evaluation Date: 09/12/17 SUBJECTIVE: Prior Hospitalization: [facility] 08/28/17 thru 09/11/17 Prior Level of Function: Modified Independent with all ADLs/IADLs. Ambulating with cane on occasion. Prior Living Status: Apartment, Alone Community Services: No known needs Home Accessibility: Stairs with rails-19 steps to enter apartment ; Tub/ shower combination Equipment Owned: Cane, Shower chair, Toilet riser Medical Complications/Past Medical History: Please refer to EMR Psychosocial Support: Supportive friends in [place] Pain Scale (0-10): No report of pain at time of evaluation. OBJECTIVE: Strength: B) LE's 4-/5 overall ROM: (please note any abnormalities) WNL B) LE's Sensation: (please note any abnormalities) no abnormalities noted Other Neuro findings: n/a Bed Mobility: CGA/SBA Assistive device: Bed rail; Head of bed elevated Transfers: Verbal cues; SBA/CGA Assistive Device: Front wheeled walker Gait: Verbal cues; SBA/CGA Assistive device: Front wheeled walker Stairs: Not yet addressed Assistive device: Timed Up and Go (>12 seconds indicated increased risk for falls): Not measured at initial visit 10 meter walk test (0.6m/second cannot function independently): Not measured at initial visit Other Objective Measures: Pt unable to ambulate with SPC safely and requires FWW for basic ambulation, but would like to progress to least restrictive device for home mobility when possible. ASSESSMENT: Pt requires cues to maintain sternal precautions in general and demos improved compliance with precautions posted in room. Pt would like to progress back to ambulation with SPC for both household and community distances on even and uneven surfaces to return to prior level of function adequately with vital signs in safe range. Pt would benefit from further PT to progress these skills gradually with monitoring of vital signs. Problem List/Current Limitations: Decreased activity kamaljit, Decreased strength , Decreased balance, Generalized weakness Short Term Goals: 1. Pt to demo compliance with sternal precautions during transfers and basic ADL's with indep. 2. Pt to ambulate 300' on even and uneven surfaces with least restrictive device and vital signs in safe range on room air. 3. Pt to kamaljit up/down 11 steps with rail and rest breaks as needed to maintain VS in safe range. Wardrobe Specialist Goals: Pt to return home with indep and functional community mobility to facilitate progression to out pt cardiac rehab program. Patient Goals: To return home at prior level of function Rehabilitation Prognosis: Good Barriers for Discharge: Pt may require more cues for proper pacing and energy conservation techniques, in addition to habituation of sternal precautions for adequate safety. PLAN: The patient will benefit from skilled physical therapy services 5 times per week for 2 weeks including: Therapeutic Activities, Transfer Training Gait Training, Stair Training, ADL's, Safety Training, Pt/Caregiver Training, Bed Mobility Thank you for this referral. If you have any questions, concerns, or comments about this report or plan, please contact me at . H. Cathleen Crump, PT, MPT MTDD
[2017-09-15] MEDS: DIAZEPAM 5 MG TAB PO PRN (21:15)
[2017-09-15] MEDS: CITALOPRAM HYDROBROM 20 MG TAB PO SCH (21:15)
[2017-09-15] MEDS: SPIRONOLACTONE 25 MG TAB PO SCH (21:16)
[2017-09-15] MEDS: MELATONIN 3 MG TAB PO PRN (21:16)
[2017-09-16] MEDS: APAP/HYDROCODONE 325/5 TAB PO PRN ×2 (01:19→23:31)
[2017-09-16] MEDS: DIAZEPAM 5 MG TAB PO PRN ×3 (07:28→20:31)
[2017-09-16 07:31] VITALS: BP 118/63
[2017-09-16] MEDS: GARLIC 1000 MG PO SCH (09:00)
[2017-09-16] MEDS: POLYETHYLENE GLYCOL 17 GM PKT PO SCH (09:00)
[2017-09-16] MEDS: DOCUSATE SODIUM 100 MG CAP PO SCH ×2 (09:00→20:30)
[2017-09-16] MEDS: amLODIPine BESYL(*) 5 MG TAB PO SCH (09:14)
[2017-09-16] MEDS: VITAMIN E 400 INTLU CAP PO SCH (09:15)
[2017-09-16] MEDS: CHOLECALCIFEROL 1000 UNIT TAB PO SCH (09:15)
[2017-09-16] MEDS: CYANOCOBALAMIN 1000 MCG TAB PO SCH (09:15)
[2017-09-16] MEDS: CLOPIDOGREL BISULFATE 75MG TAB PO SCH (09:15)
[2017-09-16] MEDS: TAMSULOSIN HCL 0.4 MG CAP PO SCH (09:15)
[2017-09-16] MEDS: ASPIRIN 81 MG ENTERIC COATED PO SCH (09:15)
[2017-09-16] MEDS: MULTIVITAMINS TAB PO SCH (09:15)
[2017-09-16] MEDS: CEPHALEXIN MONO 500 MG CAP PO SCH ×4 (09:15→20:31)
[2017-09-16] MEDS: MAGNESIUM OXIDE 400 MG TAB PO SCH ×2 (09:16→20:30)
[2017-09-16] MEDS: METOPROLOL TART 50 MG TAB PO SCH ×2 (09:16→20:30)
[2017-09-16 15:47] VITALS: BP 109/65
[2017-09-16] MEDS: SPIRONOLACTONE 25 MG TAB PO SCH (20:31)
[2017-09-16] MEDS: CITALOPRAM HYDROBROM 20 MG TAB PO SCH (20:31)
[2017-09-17] MEDS: APAP/HYDROCODONE 325/5 TAB PO PRN (03:40)
[2017-09-17 06:15] LABS: PLATELET COUNT, AUTOMATED 330 K/uL (150-450)
[2017-09-17 07:42] VITALS: BP 89/61
[2017-09-17 07:43] VITALS: BP 80/56
[2017-09-17 07:52] VITALS: BP 106/52
--- NOTE | 2017-09-17 08:52 | RADIOLOGY IMAGING REPORT ---
FACILITY: [facility] PATIENT NAME: Boubacar Ashley : 1935 MR: [id number] V: [id number] EXAM DATE: ORDERING PHYSICIAN: FAIZA YOUSSEF TECHNOLOGIST: Location: [facility] Patient: Boubacar Ashley : 1935 Visit/Account:[id number] Date of Sevice: 09/17/2017 Chest 2 views: HISTORY: Chest tightness, feels like he can't catch his breath COMPARISON: 08/28/2017 FINDINGS: Frontal and lateral chest: Cardiomediastinal silhouette is within normal limits. Increased opacity is present in the right infrahilar region, new compared to previous, this may represent atele ctasis. Developing infiltrate is also in the differential, clinically correlate. Left lung is clear. There is no pneumothorax. Pulmonary vasculature is normal. Changes of median sternotomy are noted. Degenerative changes are present in the thoracic spine. IMPRESSION: Patchy airspace opacity in the right infrahilar region, atelectasis versus infiltrate. Th ere is no other acute change. Report Dictated By: Trina Pickering MD at 09/17/2017 8:47 AM Report E-Signed By: Trina Pickering MD at 09/17/2017 8:49 AM WSN:[id number]
[2017-09-17] MEDS: GARLIC 1000 MG PO SCH (09:00)
[2017-09-17 09:16] VITALS: BP 108/48
[2017-09-17] MEDS: MULTIVITAMINS TAB PO SCH (09:25)
[2017-09-17] MEDS: ASPIRIN 81 MG ENTERIC COATED PO SCH (09:25)
[2017-09-17] MEDS: TAMSULOSIN HCL 0.4 MG CAP PO SCH (09:25)
[2017-09-17] MEDS: CHOLECALCIFEROL 1000 UNIT TAB PO SCH (09:26)
[2017-09-17] MEDS: VITAMIN E 400 INTLU CAP PO SCH (09:26)
[2017-09-17] MEDS: CLOPIDOGREL BISULFATE 75MG TAB PO SCH (09:26)
[2017-09-17] MEDS: CYANOCOBALAMIN 1000 MCG TAB PO SCH (09:26)
[2017-09-17] MEDS: MAGNESIUM OXIDE 400 MG TAB PO SCH ×2 (09:26→20:23)
[2017-09-17] MEDS: CEPHALEXIN MONO 500 MG CAP PO SCH ×2 (09:26→13:06)
[2017-09-17] MEDS: METOPROLOL TART 50 MG TAB PO SCH ×2 (09:27→20:24)
[2017-09-17] MEDS: amLODIPine BESYL(*) 5 MG TAB PO SCH (09:27)
[2017-09-17] MEDS: POLYETHYLENE GLYCOL 17 GM PKT PO SCH (10:25)
[2017-09-17] MEDS: DOCUSATE SODIUM 100 MG CAP PO SCH ×2 (10:25→20:23)
[2017-09-17 13:12] VITALS: BP 104/72
--- NOTE | 2017-09-17 13:59 | Hospitalist Progress Note ---
Subjective Progress Notes Subjective The patient complains of feeling short of breath. With this he feels panicky. Physical Exam Vital Signs Date Time Temp Pulse Resp B/P (MAP) Pulse Ox O2 Delivery O2 Flow Rate FiO2 09/17/17 13:12 74 104/72 (83) 98 Room Air 09/17/17 07:42 96.5 14 Intake and Output 09/18/17 07:00 Intake Total 480 ml Output Total 275 ml Balance 205 ml Intake Oral 480 ml Output Urine Total 275 ml # Bowel Movements 1 General Appearance: Alert, Awake, No Acute Distress, Afebrile Neuro: No Gross deficits Eyes: PERRLA Cardiovascular: Regular Rate and Rhythm, No JVD Respiratory: Clear to Auscultation GI: Soft and Non-Tender Extremities: Warm, Perfused, Other (No edema.) Integumentary: Scaly / Dry Skin, Other (Multiple SKs throughout.) Psych: Appropriate Mood & Affect Result Diagram: 09/17/1760509/17/17605 Assessment and Plan Problems: (1) S/P CABG x 5 Status: Acute Assessment & Plan: He appears to be progressing fairly well. He will have PT/ OT. Incisions all look good. He will have follow up with cardiology/CV surgery as planned. (2) CAD (coronary artery disease) Status: Chronic Assessment & Plan: He will continue on his beta torri, antiplatelet therapy. (3) Hypertension Status: Chronic Assessment & Plan: He is now om amlodipine and metoprolol. Will monitor and modify if needed. (4) BPH (benign prostatic hyperplasia) Status: Chronic Assessment & Plan: He has been started on Flomax. He currently has a Fernandez cath in place. The urologist wanted to have the cath in place for a few more days. Will plan on a trial of voiding in 2-3 days. (5) Dyspnea Status: Acute Assessment & Plan: CXR shows a right sided pneumonia. WBC is elevated with a left shift. Will stop Kelflex and place on Augmentin. Recheck labs on Friday. Levaquin not chosen due to interaction with citalopram. Time Spent on Plan of Care: < 30 min LARS BERGMAN MD Sep 17, 2017 13:59
[2017-09-17 15:40] VITALS: BP 111/75
[2017-09-17] MEDS: AMOX/CLAV 875 MG TAB PO SCH (17:10)
[2017-09-17] MEDS: LORATADINE 10 MG TAB PO SCH (17:11)
[2017-09-17] MEDS: DIAZEPAM 5 MG TAB PO PRN (20:23)
[2017-09-17] MEDS: SPIRONOLACTONE 25 MG TAB PO SCH (20:24)
[2017-09-17] MEDS: MELATONIN 3 MG TAB PO PRN (20:24)
[2017-09-17] MEDS: CITALOPRAM HYDROBROM 20 MG TAB PO SCH (20:24)
[2017-09-18 08:15] VITALS: BP 107/66
[2017-09-18] MEDS: POLYETHYLENE GLYCOL 17 GM PKT PO SCH (08:38)
[2017-09-18] MEDS: CYANOCOBALAMIN 1000 MCG TAB PO SCH (08:38)
[2017-09-18] MEDS: METOPROLOL TART 50 MG TAB PO SCH ×2 (08:38→20:32)
[2017-09-18] MEDS: CLOPIDOGREL BISULFATE 75MG TAB PO SCH (08:38)
[2017-09-18] MEDS: ASPIRIN 81 MG ENTERIC COATED PO SCH (08:39)
[2017-09-18] MEDS: amLODIPine BESYL(*) 5 MG TAB PO SCH (08:39)
[2017-09-18] MEDS: LORATADINE 10 MG TAB PO SCH (08:39)
[2017-09-18] MEDS: AMOX/CLAV 875 MG TAB PO SCH ×2 (08:39→17:04)
[2017-09-18] MEDS: VITAMIN E 400 INTLU CAP PO SCH (08:39)
[2017-09-18] MEDS: MAGNESIUM OXIDE 400 MG TAB PO SCH ×2 (08:39→20:32)
[2017-09-18] MEDS: MULTIVITAMINS TAB PO SCH (08:39)
[2017-09-18] MEDS: TAMSULOSIN HCL 0.4 MG CAP PO SCH (08:39)
[2017-09-18] MEDS: DOCUSATE SODIUM 100 MG CAP PO SCH ×2 (08:40→20:32)
[2017-09-18] MEDS: CHOLECALCIFEROL 1000 UNIT TAB PO SCH (08:40)
[2017-09-18] MEDS: GARLIC 1000 MG PO SCH (08:40)
[2017-09-18 16:20] VITALS: BP 110/70
--- NOTE | 2017-09-18 16:40 | OT ECF NOTE ---
Type of Note: Discharge Note Primary Medical Diagnosis: Weakness s/p NSTEMI and CABGx5 Sternal Precautions Avoid: (for 6 weeks postop) Lifting, pushing, or pulling anything over 5 pounds Using arms to push self into an upright position Repetitive arm movements (i.e. scrubbing movements) Lifting overhead with both arms Taking baths or hot tubs Driving, until cleared by surgeon Occupational Therapy Evaluation Date: 09/12/17 SUBJECTIVE: Prior Hospitalization: [facility] 08/28/17 thru 09/11/17 Prior Level of Function: Modified Independent with all ADLs/IADLs. Ambulating with cane on occasion. Prior Living Status: Apartment, Alone Community Services: No known needs Home Accessibility: Stairs with rails-19 steps to enter apartment Tub/shower combination Equipment Owned: Cane, Shower chair, Toilet riser- recommend pt. acquire a folding walker tray (information provided). Medical Complications/Past Medical History: Please refer to EMR Psychosocial Support: Supportive friends in [place] Pain Scale (0-10): No report of pain at time of evaluation. OBJECTIVE: Strength: N/T due to sternal precautions MMT: Right Left Shoulder Flexion [*] [*] Elbow Flexion [*] [*] Wrist Extension [*] [*] Filling Winder [*] [*] (5= normal, 4= good, 3= fair, 2= poor, 1= trace) ROM: Both upper extremities Moderately limited secondary to sternal precautions Functional Transfer: Assistive Device: Front wheeled walker, Gait belt Transfer Ability: N/T. Pt adamantly refusing to get OOB as he was fatigued and desired a nap ADL: Upper body dressing: Assistive device: Upper body dressing ability: I Lower body dressing: Assistive device: Lower body dressing ability: I Toileting: Assistive device: Toileting ability: Mod I Grooming/hygiene: Assistive device: Grooming ability: I Bathing: Assistive device: Bathing ability: Mod I Standardized Assessment: Rebecca Index of Activities of Daily Livin/20 upon initial evaluation (). on d/c 09-18-17. ASSESSMENT: "Aime" presents to [facility] requiring increased assist for ADLs/IADLs secondary to generalized weakness from recent CABG. At [facility], he was Mod (I) for all ADLs/IADLs and was ambulating community distances daily. Pt is able to recite all sternal precautions. However, during subjective evaluation, pt was noted to be breaking precautions and requiring v/c's for adherence. He will benefit from skilled OT services to optimize (I) with ADLs and improve safety awareness/adherence to sternal precautions prior to discharge home alone. Problem List/Current Limitations: Pain Decreased activity tolerance Decreased strength Generalized weakness Abnormal tonal influence Poor safety awareness Short Term Goals: 1) Pt will be Mod (I) UB/LB dressing. Goal met. 2) Pt will be Mod (I) toilet task. Goal met., 3) Pt will be Independent grooming/hygiene. Goal met 4) Pt will be Mod (I) shower task. Goal met. 5) Pt Rebecca Index of ADLs score will improve by 2 points. Goal met. 6) Pt will be Mod (I) light meal prep. GOal met. Usp Goals: Return home with possible HH services Patient Goals: "Start walking more" Rehabilitation Prognosis: Good Barriers to Discharge: Medical history, compliance with precautions PLAN: The patient will d/c to home with HH care, when cleared by PT services. Thank you for this referral. If you have any questions, concerns, or comments about this report or plan, please contact me at . Layla Frey, OTR/L Occupational Therapist [facility]
[2017-09-18] MEDS: DIAZEPAM 5 MG TAB PO PRN (20:32)
[2017-09-18] MEDS: CITALOPRAM HYDROBROM 20 MG TAB PO SCH (20:32)
[2017-09-18] MEDS: MELATONIN 3 MG TAB PO PRN (20:32)
[2017-09-18] MEDS: SPIRONOLACTONE 25 MG TAB PO SCH (20:32)
[2017-09-19] MEDS: APAP/HYDROCODONE 325/5 TAB PO PRN (03:52)
[2017-09-19 06:13] LABS: PLATELET COUNT, AUTOMATED 326 K/uL (150-450)
[2017-09-19 08:30] VITALS: BP 115/62
[2017-09-19] MEDS: AMOX/CLAV 875 MG TAB PO SCH ×2 (08:44→16:49)
[2017-09-19] MEDS: DOCUSATE SODIUM 100 MG CAP PO SCH ×2 (09:00→20:26)
[2017-09-19] MEDS: POLYETHYLENE GLYCOL 17 GM PKT PO SCH (09:00)
[2017-09-19] MEDS: GARLIC 1000 MG PO SCH (09:00)
[2017-09-19] MEDS: LORATADINE 10 MG TAB PO SCH (09:38)
[2017-09-19] MEDS: CYANOCOBALAMIN 1000 MCG TAB PO SCH (09:38)
[2017-09-19] MEDS: amLODIPine BESYL(*) 5 MG TAB PO SCH (09:38)
[2017-09-19] MEDS: TAMSULOSIN HCL 0.4 MG CAP PO SCH (09:38)
[2017-09-19] MEDS: METOPROLOL TART 50 MG TAB PO SCH ×2 (09:38→20:25)
[2017-09-19] MEDS: CLOPIDOGREL BISULFATE 75MG TAB PO SCH (09:38)
[2017-09-19] MEDS: MULTIVITAMINS TAB PO SCH (09:38)
[2017-09-19] MEDS: MAGNESIUM OXIDE 400 MG TAB PO SCH ×2 (09:38→20:25)
[2017-09-19] MEDS: CHOLECALCIFEROL 1000 UNIT TAB PO SCH (09:38)
[2017-09-19] MEDS: VITAMIN E 400 INTLU CAP PO SCH (09:38)
[2017-09-19] MEDS: ASPIRIN 81 MG ENTERIC COATED PO SCH (09:38)
[2017-09-19 17:13] VITALS: BP 110/64
[2017-09-19] MEDS: DIAZEPAM 2 MG TAB PO PRN (20:25)
[2017-09-19] MEDS: MELATONIN 3 MG TAB PO PRN (20:26)
[2017-09-19] MEDS: CITALOPRAM HYDROBROM 20 MG TAB PO SCH (20:26)
[2017-09-19] MEDS: SPIRONOLACTONE 25 MG TAB PO SCH (20:26)
[2017-09-20] MEDS: APAP/HYDROCODONE 325/5 TAB PO PRN ×2 (05:16→20:56)
[2017-09-20 08:00] VITALS: BP 113/69
[2017-09-20] MEDS: AMOX/CLAV 875 MG TAB PO SCH ×2 (08:38→17:36)
[2017-09-20] MEDS: DOCUSATE SODIUM 100 MG CAP PO SCH ×2 (09:00→20:56)
[2017-09-20] MEDS: POLYETHYLENE GLYCOL 17 GM PKT PO SCH (09:00)
[2017-09-20] MEDS: GARLIC 1000 MG PO SCH (09:00)
[2017-09-20] MEDS: LORATADINE 10 MG TAB PO SCH (09:18)
[2017-09-20] MEDS: CLOPIDOGREL BISULFATE 75MG TAB PO SCH (09:19)
[2017-09-20] MEDS: TAMSULOSIN HCL 0.4 MG CAP PO SCH (09:19)
[2017-09-20] MEDS: CHOLECALCIFEROL 1000 UNIT TAB PO SCH (09:19)
[2017-09-20] MEDS: ASPIRIN 81 MG ENTERIC COATED PO SCH (09:19)
[2017-09-20] MEDS: MULTIVITAMINS TAB PO SCH (09:19)
[2017-09-20] MEDS: CYANOCOBALAMIN 1000 MCG TAB PO SCH (09:19)
[2017-09-20] MEDS: METOPROLOL TART 50 MG TAB PO SCH ×2 (09:19→20:56)
[2017-09-20] MEDS: amLODIPine BESYL(*) 5 MG TAB PO SCH (09:19)
[2017-09-20] MEDS: VITAMIN E 400 INTLU CAP PO SCH (09:19)
[2017-09-20] MEDS: MAGNESIUM OXIDE 400 MG TAB PO SCH ×2 (09:19→20:56)
[2017-09-20 15:00] VITALS: BP 111/68
[2017-09-20] MEDS: MELATONIN 3 MG TAB PO PRN (20:55)
[2017-09-20] MEDS: SPIRONOLACTONE 25 MG TAB PO SCH (20:56)
[2017-09-20] MEDS: DIAZEPAM 2 MG TAB PO PRN (20:56)
[2017-09-20] MEDS: CITALOPRAM HYDROBROM 20 MG TAB PO SCH (20:56)
[2017-09-21 06:17] LABS: PLATELET COUNT, AUTOMATED 267 K/uL (150-450)
[2017-09-21] MEDS: APAP/HYDROCODONE 325/5 TAB PO PRN (06:30)
[2017-09-21 07:45] VITALS: BP 112/67
[2017-09-21] MEDS: VITAMIN E 400 INTLU CAP PO SCH (08:36)
[2017-09-21] MEDS: AMOX/CLAV 875 MG TAB PO SCH (08:36)
[2017-09-21] MEDS: CHOLECALCIFEROL 1000 UNIT TAB PO SCH (08:37)
[2017-09-21] MEDS: MAGNESIUM OXIDE 400 MG TAB PO SCH ×2 (08:37→20:58)
[2017-09-21] MEDS: LORATADINE 10 MG TAB PO SCH (08:37)
[2017-09-21] MEDS: POLYETHYLENE GLYCOL 17 GM PKT PO SCH (08:37)
[2017-09-21] MEDS: MULTIVITAMINS TAB PO SCH (08:38)
[2017-09-21] MEDS: CYANOCOBALAMIN 1000 MCG TAB PO SCH (08:38)
[2017-09-21] MEDS: DOCUSATE SODIUM 100 MG CAP PO SCH ×2 (08:38→20:58)
[2017-09-21] MEDS: ASPIRIN 81 MG ENTERIC COATED PO SCH (08:38)
[2017-09-21] MEDS: TAMSULOSIN HCL 0.4 MG CAP PO SCH (08:38)
[2017-09-21] MEDS: amLODIPine BESYL(*) 5 MG TAB PO SCH (08:38)
[2017-09-21] MEDS: CLOPIDOGREL BISULFATE 75MG TAB PO SCH (08:38)
[2017-09-21] MEDS: METOPROLOL TART 50 MG TAB PO SCH ×2 (08:38→20:58)
[2017-09-21] MEDS: GARLIC 1000 MG PO SCH (08:40)
[2017-09-21 15:20] VITALS: BP 99/65
--- NOTE | 2017-09-21 15:20 | Miscellaneous Provider Note ---
Miscellaneous Provider Note Note Afebrile, BP 112/67, P67 Item Value Date Time White Blood Count 13.6 k/uL H 09/21/17554 Hemoglobin 12.9 g/dL L 09/21/17554 Hematocrit 37.3 % L 09/21/17554 Platelet Count 267 K/uL 09/21/17554 Neutrophils (%) (Auto) 65.9 % 09/21/17554 Blood Urea Nitrogen 25 mg/dl H 09/21/17554 Creatinine 1.00 mg/dl 09/21/17554 Sodium Level 136 mmol/L L 09/21/17554 SPEC #: [id number] SHEEBA: 09/19/17 STATUS: COMP REQ #: [id number] RECD: 09/19/[address] [facility] [address]: CHEPE ESCOBAR MD FACP SOURCE: [facility] ENTR: 09/19/[address] [facility] [address]: EM GAN MD SPDESC: GISELL BERGMAN MD ORDERED: CULT URINE COMMENTS: Has specimen been collected/obtained? Y Procedure Result Verified URINE CULTURE Final 09/21/17-1103 Organism 1 PSEUDOMONAS AERUGINOSA >100,000 COL/ML PSE AERUGI M.I.C. RX --------- --- CEFTAZIDIME 4 S CEFEPIME 2 S CIPROFLOXACIN <=0.25 S GENTAMICIN <=1 S IMIPENEM 0.5 S LEVOFLOXACIN 0.5 S PIPERACILLIN/TAZOBACTAM 8 S TOBRAMYCIN <=1 S Because of the pseudomonas in the urine patient is getting switched to levofloxacin. QTc was wnl on 09/15, but the patient is on citalopram. Will give a dose of levofloxacin 750mg and then recheck ECG in the am. BLAIRE WINKLER MD Sep 21, 2017 15:20
[2017-09-21] MEDS: LEVOFLOXACIN 750 MG TAB PO SCH (15:56)
[2017-09-21] MEDS: ACETAMINOPHEN 325 MG TAB PO PRN (15:56)
[2017-09-21] MEDS: SPIRONOLACTONE 25 MG TAB PO SCH (20:58)
[2017-09-21] MEDS: DIAZEPAM 2 MG TAB PO PRN (20:58)
[2017-09-21] MEDS: MELATONIN 3 MG TAB PO PRN (20:58)
[2017-09-21] MEDS: CITALOPRAM HYDROBROM 20 MG TAB PO SCH (20:58)
[2017-09-22] MEDS: ACETAMINOPHEN 325 MG TAB PO PRN (00:48)
--- NOTE | 2017-09-22 07:12 | EKG ---
FACILITY: [facility] PATIENT NAME: SESAR JACK : [id number] MR: [id number] V: [id number] EXAM DATE: ORDERING PHYSICIAN: BLAIRE WINKLER TECHNOLOGIST: MIKEY Ndiaye Reason : QTC Blood Pressure : / mmHG Vent. Rate : 095 BPM Atrial Rate : 080 BPM P-R Int : 000 ms QRS Dur : 090 ms QT Int : 368 ms P-R-T Axes : 000 068 151 degrees QTc Int : 462 ms Accelerated Junctional rhythm T wave abnormality, consider anterolateral ischemia Prolonged QT Abnormal ECG When compared with ECG of 15-SEP-2017 17:09, Junctional rhythm has replaced Sinus rhythm Confirmed by MARKELL PIPER ([id number]) on 09/22/2017 9:55:27 AM Referred By: Confirmed By:MARKELL PIPER
[2017-09-22] MEDS: METOPROLOL TART 50 MG TAB PO SCH ×2 (08:40→21:19)
[2017-09-22] MEDS: CLOPIDOGREL BISULFATE 75MG TAB PO SCH (08:40)
[2017-09-22] MEDS: POLYETHYLENE GLYCOL 17 GM PKT PO SCH (08:40)
[2017-09-22] MEDS: MULTIVITAMINS TAB PO SCH (08:41)
[2017-09-22] MEDS: DOCUSATE SODIUM 100 MG CAP PO SCH ×3 (08:41→21:19)
[2017-09-22] MEDS: MAGNESIUM OXIDE 400 MG TAB PO SCH ×2 (08:41→21:19)
[2017-09-22] MEDS: amLODIPine BESYL(*) 5 MG TAB PO SCH (08:41)
[2017-09-22] MEDS: ASPIRIN 81 MG ENTERIC COATED PO SCH (08:41)
[2017-09-22] MEDS: CHOLECALCIFEROL 1000 UNIT TAB PO SCH (08:41)
[2017-09-22] MEDS: CYANOCOBALAMIN 1000 MCG TAB PO SCH (08:41)
[2017-09-22] MEDS: LORATADINE 10 MG TAB PO SCH (08:42)
[2017-09-22] MEDS: VITAMIN E 400 INTLU CAP PO SCH (08:42)
[2017-09-22] MEDS: TAMSULOSIN HCL 0.4 MG CAP PO SCH (08:42)
[2017-09-22] MEDS: GARLIC 1000 MG PO SCH (08:42)
[2017-09-22 09:55] VITALS: BP 107/72
[2017-09-22] MEDS: ACETAMINOPHEN 500 MG TAB PO SCH ×2 (10:05→16:41)
--- NOTE | 2017-09-22 15:42 | Medical Nutrition Therapy ---
Nutrition Anthropometrics Height (Inches): 72.00 Height (Calculated Centimeters: 182.184417 Weight (Pounds): 196 Weight (Calculated Kilograms): 89.131 BMI: 27.4 Demetri Nutrition Score: Adequate Demetri Nutrition Risk Score: 19 Dietary Referral Nutrition Risk Factors: Nutrition Risk Comment: Physical Findings Physical Appearance: Overweight BMI 25-29 Skin Appearance Skin Appearance: Edema Edema Location Modifier: Both Edema Location: Lower Extremity Type of Edema: Degree of Edema: 1+ Gastrointestinal Symptoms GI Symtoms: Appetite Changes Tube Present: Bowel Sounds: Recent Bowel Pattern: Stool Characteristics: Nutritional Diagnosis Nutritional Risk Acuity 3: OR & > 80 yrs Nutritional Risk Acuity 4: Good Appetite Past Medical History: CAD Nutritional Acuity: 3-Mild Adjusted Energy Requirement Re: 2160 Protein Requirement: 73 (.8gm/kg) Fluid Requirement: 2275 (25ml/kg) Nutrition Intervention: Cont diet as ordered, Encourage intake, HS snack Drug: Diuretics Nutrition Monitoring & Eval Nutrition Goals: Eat 50-100% Meal, Drink > 2 liters/day RD Patient Assessment Time: [address] Assessment Type: RD Re-Assessment Patient Nutrition Acuity: 2-Moderate Follow Up Date: Sep 26, 2017 Nutritional Comment: Pt admitted s/p recent CABG. Pt on cardiac diet and eating 75-100% of meals. Alb WNR, Creatinine eleavted at 1.5, BUN elevated at 25. Pt is on K+ sparing duiretic. K+ is WNR. cont to monitor and encourage intake. 09/14 Consuming 50-100% of cardiac diet. No new labs. Follow intake, labs, etc. -DRT 09/15 Cont intake 50- 100% of cardiac diet. Alb 3. Pt has non pitting edema LE. Pt may have wt loss when edema resolved. Will cont to monitor and encourage intake. BK 8/6. Pt cont cardiac diet, continuing 50-100% of meals. WBC slighty elevated, 13.6. Pt receiving 750mg Levofloxacin Qday. Cont to monitor and encourage intake. NATACHA PUGH Sep 22, 2017 11:00
[2017-09-22] MEDS: LEVOFLOXACIN 750 MG TAB PO SCH (16:41)
[2017-09-22 17:04] VITALS: BP 100/61
[2017-09-22] MEDS: CITALOPRAM HYDROBROM 20 MG TAB PO SCH (21:19)
[2017-09-22] MEDS: MELATONIN 3 MG TAB PO PRN (21:19)
[2017-09-22] MEDS: SPIRONOLACTONE 25 MG TAB PO SCH (21:19)
[2017-09-22] MEDS: traZODone HCL 50 MG TAB PO SCH (21:19)
[2017-09-23] MEDS: ACETAMINOPHEN 500 MG TAB PO SCH ×3 (01:00→16:27)
[2017-09-23 08:00] VITALS: BP 105/79
[2017-09-23] MEDS: CHOLECALCIFEROL 1000 UNIT TAB PO SCH (08:52)
[2017-09-23] MEDS: ASPIRIN 81 MG ENTERIC COATED PO SCH (08:52)
[2017-09-23] MEDS: METOPROLOL TART 50 MG TAB PO SCH ×2 (08:52→21:07)
[2017-09-23] MEDS: CLOPIDOGREL BISULFATE 75MG TAB PO SCH (08:53)
[2017-09-23] MEDS: MAGNESIUM OXIDE 400 MG TAB PO SCH ×2 (08:53→21:07)
[2017-09-23] MEDS: LORATADINE 10 MG TAB PO SCH (08:53)
[2017-09-23] MEDS: amLODIPine BESYL(*) 5 MG TAB PO SCH (08:53)
[2017-09-23] MEDS: TAMSULOSIN HCL 0.4 MG CAP PO SCH (08:53)
[2017-09-23] MEDS: VITAMIN E 400 INTLU CAP PO SCH (08:53)
[2017-09-23] MEDS: CYANOCOBALAMIN 1000 MCG TAB PO SCH (08:53)
[2017-09-23] MEDS: MULTIVITAMINS TAB PO SCH (08:53)
[2017-09-23] MEDS: GARLIC 1000 MG PO SCH (09:00)
[2017-09-23] MEDS: POLYETHYLENE GLYCOL 17 GM PKT PO SCH (09:00)
[2017-09-23] MEDS: DOCUSATE SODIUM 100 MG CAP PO SCH ×2 (09:00→21:07)
[2017-09-23 15:18] VITALS: BP 98/65
[2017-09-23] MEDS: LEVOFLOXACIN 750 MG TAB PO SCH (16:27)
[2017-09-23] MEDS: traZODone HCL 50 MG TAB PO SCH (21:07)
[2017-09-23] MEDS: CITALOPRAM HYDROBROM 20 MG TAB PO SCH (21:12)
[2017-09-24] MEDS: ACETAMINOPHEN 500 MG TAB PO SCH ×3 (01:00→16:27)
[2017-09-24 07:30] VITALS: BP 106/71
[2017-09-24] MEDS: DOCUSATE SODIUM 100 MG CAP PO SCH ×2 (09:00→20:40)
[2017-09-24] MEDS: GARLIC 1000 MG PO SCH (09:00)
[2017-09-24] MEDS: POLYETHYLENE GLYCOL 17 GM PKT PO SCH (09:00)
[2017-09-24] MEDS: MAGNESIUM OXIDE 400 MG TAB PO SCH ×2 (09:11→20:40)
[2017-09-24] MEDS: VITAMIN E 400 INTLU CAP PO SCH (09:11)
[2017-09-24] MEDS: LORATADINE 10 MG TAB PO SCH (09:11)
[2017-09-24] MEDS: METOPROLOL TART 50 MG TAB PO SCH ×2 (09:11→20:40)
[2017-09-24] MEDS: CHOLECALCIFEROL 1000 UNIT TAB PO SCH (09:11)
[2017-09-24] MEDS: SPIRONOLACTONE 25 MG TAB PO SCH (09:11)
[2017-09-24] MEDS: TAMSULOSIN HCL 0.4 MG CAP PO SCH (09:11)
[2017-09-24] MEDS: MULTIVITAMINS TAB PO SCH (09:11)
[2017-09-24] MEDS: CLOPIDOGREL BISULFATE 75MG TAB PO SCH (09:11)
[2017-09-24] MEDS: amLODIPine BESYL(*) 5 MG TAB PO SCH (09:12)
[2017-09-24] MEDS: CYANOCOBALAMIN 1000 MCG TAB PO SCH (09:12)
[2017-09-24] MEDS: ASPIRIN 81 MG ENTERIC COATED PO SCH (09:12)
[2017-09-24] MEDS ORDERED: METO25TA93 PO (15:26)
[2017-09-24] MEDS ORDERED: CLOP75TA PO (15:26)
[2017-09-24] MEDS ORDERED: TRAZ50TA34 PO (15:26)
[2017-09-24] MEDS ORDERED: AMLO-96 PO (15:26)
--- NOTE | 2017-09-24 15:32 | Hospitalist Depart ---
Discharge Summary Reason for Hosp/Final Diag: (1) S/P CABG x 5 Status: Acute Hospital Course & Plan: He appears to be progressing fairly well. He has worked with PT/OT and has made good progress. Incisions all look good. He will have follow up with cardiology/CV surgery as planned. (2) CAD (coronary artery disease) Status: Chronic Hospital Course & Plan: He will continue on his beta torri, antiplatelet therapy. Sent refills to his pharmacy. (3) Hypertension Status: Chronic Hospital Course & Plan: He is now on amlodipine and metoprolol. Refills of medications sent to his pharmacy. (4) BPH (benign prostatic hyperplasia) Status: Chronic Hospital Course & Plan: Resolved. He was requiring a urinary catheter. He has been urinating on his own without difficulty. (5) Dyspnea Status: Acute Hospital Course & Plan: He had complaints of SOB. CXR showed a right sided pneumonia. WBC was elevated with a left shift. He was placed on Levaquin. He will complete his fifth dose of Levaquin tomorrow and will not require any further doses when going home. 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 PROFESSOR OF SURGERY Follow Up For: ADL Assistance Discharge Instructions Home Meds Active Scripts Trazodone Hcl (TRAZODONE HCL) 50 Mg Tablet, 50 MG PO QHS, #30 TAB Prov:DENA WILSONP 09/24/17 Metoprolol Tartrate (METOPROLOL TARTRATE) 25 Mg Tablet, 12.5 MG PO BID for 30 Days, #30 TAB Prov:DENA WILSONP 09/24/17 Clopidogrel Bisulfate (CLOPIDOGREL) 75 Mg Tablet, 75 MG PO QDAY, #30 TAB Prov:DENA WILSONP 09/24/17 Amlodipine Besylate (AMLODIPINE BESYLATE) 5 Mg Tablet, 5 MG PO QDAY, #30 TAB Prov:WILSONCHRISTIDENA Farooq TWISTER TENDER PAPER 09/24/17 Spironolactone (SPIRONOLACTONE) 25 Mg Tablet, 1 TAB PO DAILY for 90 Days, #90 TAB 4 Refills Prov:EM GAN MD 07/15/17 Reported Medications Multivits,Ca,Min/Iron/FA/Lycop (Centrum Men's Tablet) 1 Each Tablet, 1 PO DAILY 09/12/17 Garlic (GARLIC) 1,000 Mg Capsule, 1 TAB PO DAILY, CAPSULE 05/28/17 Aspirin (ASPIR 81) 81 Mg Tablet.dr, 1 TAB PO QDAY, TAB 05/28/17 Cholecalciferol (Vitamin D3) (VITAMIN D) 2,000 Unit Tablet, 1 TAB PO DAILY 05/28/17 Vitamin E Acetate (VITAMIN E) 400 Unit Capsule, 1 CAP PO DAILY, CAPSULE 12/11/16 Multivit-Min/FA/Lycopen/Lutein (Centrum Silver Men Tablet) 300 Mcg-600 Mcg-300 Mcg Tablet, 1 TAB PO DAILY 12/11/16 Magnesium Oxide (MAGNESIUM) 250 Mg Tablet, 1 TAB PO DAILY 12/11/16 Cyanocobalamin (Vitamin B-12) (VITAMIN B-12) 1,000 Mcg Tablet, 1 TAB PO DAILY 12/11/16 Citalopram Hydrobromide (CITALOPRAM HBR) 20 Mg Tablet, 1 TAB PO QDAY 06/04/16 Discontinued Reported Medications Amlodipine Besylate (AMLODIPINE BESYLATE) 10 Mg Tablet, 1 TAB PO QDAY, TAB 12/11/16 Losartan Potassium (LOSARTAN POTASSIUM) 100 Mg Tablet, 1 TAB PO QDAY 06/04/16 Diet: Regular Activity: As Tolerated Special Instructions: Post-operative visit with Dr. Johnson, FridayOct 03 at [facility] [place], [place] at 1pm [phone] New patient visit with Dr. Mckeon Oct 10, a [facility] [place], [place] Follow up with Dr. Gan October 07 at 1pm [place] Copies to: EM GAN MD Venous Thromboembolism Antithrombotics Is Pt On Any Antithrombotics?: Yes [id number] Certification Face to Face Home Health Certification Institutional Provider conducted the [id number] encounter. Electronic Undersigning Physician Certifies Home Health. I certify that the patient has been under my care and that I had a [id number] encounter that meets the physician [id number] encounter requirements with this patient. This patient is home-bound due to safety issues and continues to require assistance with ADL's. I certify that based on my findings, that Nursing, Aides and the following Home Health services are medically necessary. Medical Necessity: Nursing, Rehab Date Face to Face Conducted: Sep 24, 2017 DENA WILSON TWISTER TENDER PAPER Sep 24, 2017 15:32
[2017-09-24] MEDS: LEVOFLOXACIN 750 MG TAB PO SCH (16:27)
[2017-09-24 16:47] VITALS: BP 110/74
[2017-09-24] MEDS: CITALOPRAM HYDROBROM 20 MG TAB PO SCH (20:40)
[2017-09-24] MEDS: traZODone HCL 50 MG TAB PO SCH (20:40)
[2017-09-25] MEDS: ACETAMINOPHEN 500 MG TAB PO SCH ×2 (01:00→09:12)
[2017-09-25 08:00] VITALS: BP 108/65
[2017-09-25] MEDS: GARLIC 1000 MG PO SCH (09:00)
[2017-09-25] MEDS: DOCUSATE SODIUM 100 MG CAP PO SCH (09:00)
[2017-09-25] MEDS: POLYETHYLENE GLYCOL 17 GM PKT PO SCH (09:00)
[2017-09-25] MEDS: VITAMIN E 400 INTLU CAP PO SCH (09:12)
[2017-09-25] MEDS: LORATADINE 10 MG TAB PO SCH (09:12)
[2017-09-25] MEDS: MAGNESIUM OXIDE 400 MG TAB PO SCH (09:12)
[2017-09-25] MEDS: MULTIVITAMINS TAB PO SCH (09:13)
[2017-09-25] MEDS: CHOLECALCIFEROL 1000 UNIT TAB PO SCH (09:13)
[2017-09-25] MEDS: METOPROLOL TART 50 MG TAB PO SCH (09:13)
[2017-09-25] MEDS: amLODIPine BESYL(*) 5 MG TAB PO SCH (09:13)
[2017-09-25] MEDS: TAMSULOSIN HCL 0.4 MG CAP PO SCH (09:13)
[2017-09-25] MEDS: SPIRONOLACTONE 25 MG TAB PO SCH (09:13)
[2017-09-25] MEDS: ASPIRIN 81 MG ENTERIC COATED PO SCH (09:13)
[2017-09-25] MEDS: CYANOCOBALAMIN 1000 MCG TAB PO SCH (09:13)
[2017-09-25] MEDS: CLOPIDOGREL BISULFATE 75MG TAB PO SCH (09:13)
--- NOTE | 2017-09-26 08:19 | PT ECF NOTE ---
Type of Note: Discharge Summary Primary Medical Diagnosis: Weakness s/p NSTEMI and CABGx5 Sternal Precautions Avoid: (for 6 weeks postop) Lifting, pushing, or pulling anything over 5 pounds Using arms to push self into an upright position Repetitive arm movements (i.e. scrubbing movements) Lifting overhead with both arms Taking baths or hot tubs Driving, until cleared by surgeon Physical Therapy Discharge Date: 09/26/17 SUBJECTIVE: Prior Hospitalization: [facility] 08/28/17 thru 09/11/17 Prior Level of Function: Modified Independent with all ADLs/IADLs. Ambulating with cane on occasion. Prior Living Status: Apartment, Alone Community Services: No known needs Home Accessibility: Stairs with rails-19 steps to enter apartment ; Tub/ shower combination Equipment Owned: Cane, Shower chair, Toilet riser, RW Medical Complications/Past Medical History: Please refer to EMR Psychosocial Support: Supportive friends in [place] Pain Scale (0-10): No report of pain OBJECTIVE: Strength: B) LE's 4-/5 overall ROM: (please note any abnormalities) WNL B) LE's Sensation: (please note any abnormalities) no abnormalities noted Other Neuro findings: n/a Bed Mobility: CGA/SBA, Bed rail; Head of bed elevated, Eliazar with log roll while maintaining sternal precautions Transfers: Yong with 4WW Gait: Yong x300' with 4WW, seated rest breaks as needed Stairs: 12 with use of railing and Yong ASSESSMENT: Pt is safe to d/c home from a mobility standpoint when medically appropriate. The patient demonstrates Yong with transfers, ambulation and stair negotiation (x12 stairs with standing rest breaks as needed). The patient demonstrates improved compliance with sternal precautions with STS transfers and use of railing with stairs, but reports that he will likely break sternal precautions when completing bed mobility at home. Pt provided with education throughout stay regarding importance of adherence to sternal precautions to facilitate healing of sternal incision. Pt has demonstrated SpO2 WNL on room air during final PT visits prior to d/c. The patient will d/c home with assistance from a close friend as well as [facility] services. He plans to transition to [facility] services when deemed appropriate and safe. No further PT visits at this time. Problem List/Current Limitations: Decreased activity kamaljit, Decreased strength , Decreased balance, Generalized weakness Short Term Goals: 1. Pt to demo compliance with sternal precautions during transfers and basic ADL's with indep. (partially met, pt with inconsistent follow through, reports that he will likely break precautions when he discharges home) 2. Pt to ambulate 300' on even and uneven surfaces with least restrictive device and vital signs in safe range on room air. (met) 3. Pt to kamaljit up/down 11 steps with rail and rest breaks as needed to maintain VS in safe range. (met) Sales Market Leader Goals: Pt to return home with indep and functional community mobility to facilitate progression to out pt cardiac rehab program. (partially met, pt will start with [facility] services with plan to transition to cardiac rehab as appropriate) Patient Goals: To return home at prior level of function (goal will continue to be addressed with HHC) PLAN: The patient discharged home with [facility] services with plan to transition to cardiac rehab when deemed appropriate and safe. Pt is Yong with use of walker. Thank you for this referral. If you have any questions, concerns, or comments about this report or plan, please contact me at . Rhianna Watkins, PT, DPT MTDD
== END 2017-09-25 11:20 | disposition home or self-care (01) | DRG 949 ==
LOC: SWB 13:59
PROVIDERS: ADMIT Internal Medicine; ATTEND Internal Medicine
DX: Z48.812 Encounter for surgical aftercare following surgery on the circulatory system (principal); J18.9 Pneumonia, unspecified organism; I25.10 Atherosclerotic heart disease of native coronary artery without angina pectoris; I10 Essential (primary) hypertension; N40.0 Benign prostatic hyperplasia without lower urinary tract symptoms; Z95.1 Presence of aortocoronary bypass graft
CPT/HCPCS: 36415; 71046; 81001; 82040; 82247; 82310; 82374; 82435; 82565; 82947; 84075; 84132; 84155; 84295; 84450; 84460; 84484; 84520; 85025; 87077; 87088; 87186; 93005; 97165

== ENCOUNTER → 2017-12-04 | Outpatient (CLI) | payer MEDICARE ==
[2016-07-24 13:44] VITALS: BMI 28.2
[~2017-12-04] MED LIST changes: +AMLO-111 PO; +AMLO-113 PO; -AMLO-99 PO; +CHOL200018 PO; -CHOL200022 PO; +CLOP75TA PO; -LOSA100T67 PO; +LOSA100T69 PO; +METO25TA93 PO; +MULT-28 PO; +ROSU5TAB8 PO; +TRAZ50TA34 PO
== END ==
LOC: US 01:15
PROVIDERS: ATTEND Internal Medicine
DX: I51.7 Cardiomegaly (principal); Q21.0 Ventricular septal defect
CPT/HCPCS: 93306

== ENCOUNTER 2018-01-07 08:00 | Outpatient (RCR) | payer MEDICARE ==
[2016-07-24 13:44] VITALS: BMI 28.2
[2017-10-13 16:17] VITALS: BP_SYST 114; BP_SYST 122; BP_DIAS 64; BP_DIAS 78
--- NOTE | 2017-10-13 17:15 | CARDIAC REHAB PLAN OF CARE ---
Physician: Kallie Hatch MD Patient is being seen: Ruth Joe Medical Diagnosis: CABG x 5 Date of Onset: 07/29/17 Date of Initial Evaluation: 10/13/17 INTERVENTIONS: Due Date: 11/13/17 Short Term Goals: Patient Assessment: Patient is a 81yr old male. He comes to cardiac rehab following heart surgery--CABG x 5 and N-STEMI. He also reports mild shortness of breath randomly throughout the day following his surgery. He has had a total L knee replacement and is at risk for developing type II diabetes. He currently uses a cane to walk Exercise Assessment: During his 6-minute walk (6MW) test, the patient walked a total of 775ft, averaging to 1.5mph. HR range for his 6MW was between 75-89bpm with SPO2 remaining above 90% on room air. On average he reported an RPE between 3-6 and at minute 4 reported a Dyspnea level of +1 (on a 4 pt scale). While testing exercise equipment, we found both the recumbent bike and NuStep appropriate for his physical capabilities. He had a normal hemodynamic response with HR remaining between 75-80bpm and BP rising to 126/76. He exercises on average between 1.5-2.7 METs Exercise Plan: Goals: Our primary goal will be to increase exercise duration towards the recommended 150 min/week. Once this goal is achieved our next goal will be to increase average exercise intensity towards 4-6 METs. Through this plan we hope to instill confidence in the patient that he may feel comfortable exercising at home by himself on his off days and uplift his morale as he starts to become more physically active again. Exercise Prescription: Mode: Cardiovascular--Recumbent Bike, walking around the track, and NuStep. Strength--combination of free weight, body weight, and resistance band exercises. Frequency: 3 days/week (MWF) for the first two weeks. Followed by at home activity T/Th pending all exercise response is WNL and safe. Duration: Starting with 25 minutes of total exercise per session, and progressing towards 50 minutes/session = 150 min/week. Intensity: THR- 75-90bpm; METs - 2-2.5 progressing towards 4-6; RPE 3-5 Education: Our educational emphasis will be towards slow and gradual progressing leading towards large gains over time. We want the patient to understand that exercise and recovery from surgery is a gradual progression and that these things take time. This will primarily be instill through psychosocial management. 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 Exercise Reassessment (Date: ): Exercise Discharge/Follow-Up (Date: ): Nutrition Assessment: Patient appears to eat a relatively healthy diet. He eats primarily vegetarian--recently transitioning towards the [place] Diet which is high in fruits, vegetables, legumes, and grains--low in fats and animal protein. He is aware of most healthful information but is unsure of the classification of healthy fats and whole grains. He believes you can have your favorite foods in moderation. Nutrition Plan: Goals: Our goals as a staff will be to help support this healthful diet as best we can while instilling the notion that you cannot cut out all of your favorite foods from your diet. We can help provide information on healthful alternatives to his favorite foods and how to eat out at restaurants healthfully too. Intervention: Our intervention includes following up with our patient on a regular basis with dietary questions and education that can help support him as he is developing this new behavior change. Education: Education will include healthful alternatives to some of his comfort foods as well as healthy recipes to help him prepare meals at home. Nutrition Reassessment (Date: ): Nutrition Discharge/Follow-Up (Date: ): Psychosocial Assessment: Previous health care providers of the current patient did warn the CR staff that there may be some mild depression on the patient's psychosocial evaluation. While he did not report any during the HADS assessment (2 on Depression, 3 on Anxiety--both low levels), he did voice his opinion on the matter. He was disheartened at first by his failing health and his relative weakness post surgery. He now has appeared to accept that this is natural following such an event and understands that is will be a slow and gradual process. He does appear to be in a healthy state of mind and have realistic expectations. Psychosocial Plan: Goals: Our goals as a cardiac rehab staff will be to provide the social and educational support the patient needs to maintain this optimist and realistic state of mind. He does not have a large support system in the nearby vicinity, and could benefit from the social aspects of Cardiac Rehab. We will also provide him the optimistic view when we do see benefits coming--even if they are small we can help uplift him and point out those progressions so he can see the changes happening. Intervention: We will provide social support through conversation and professional connections on a weekly basis Education: Education will be focused towards what kind of benefits will be witness within 3 months of exercise as well as how consistency through exercise pays off in the end. Psychosocial Reassessment (Date: ): Psychosocial Discharge/Follow-Up (Date: ): Physician Signature: Date: MTDD
[2017-10-15 17:27] VITALS: BP 120/70
[2017-10-15 17:28] VITALS: BP 117/68
[2017-10-17 12:59] VITALS: BP_SYST 112; BP_SYST 116; BP_DIAS 64; BP_DIAS 74
[2017-10-22 16:14] VITALS: BP 122/78
[2017-10-22 16:15] VITALS: BP 106/68
[2017-10-24 13:43] VITALS: BP_SYST 102; BP_SYST 118; BP_DIAS 68; BP_DIAS 76
[2017-10-27 12:57] VITALS: BP 100/68
[2017-10-27 12:58] VITALS: BP 124/62
[2017-10-29 13:30] VITALS: BP_SYST 110; BP_SYST 132; BP_DIAS 70; BP_DIAS 78
[2017-11-03 13:09] VITALS: BP_SYST 112; BP_SYST 122; BP_DIAS 70; BP_DIAS 76
[2017-11-05 12:51] VITALS: BP 124/68
[2017-11-05 12:52] VITALS: BP 116/58
[2017-11-07 17:28] VITALS: BP_SYST 116; BP_SYST 117; BP_DIAS 60; BP_DIAS 68
[2017-11-10 16:59] VITALS: BP 122/62
[2017-11-10 17:00] VITALS: BP 114/62
[2017-11-12 13:49] VITALS: BP 104/68
[2017-11-12 13:50] VITALS: BP 116/70
[2017-11-17 13:07] VITALS: BP_SYST 126; BP_SYST 138; BP_DIAS 66; BP_DIAS 80
[2017-11-19 13:13] VITALS: BP_SYST 107; BP_SYST 114; BP_DIAS 66; BP_DIAS 72
--- NOTE | 2017-11-20 12:16 | CARDIAC REHAB PLAN OF CARE ---
Physician: Kallie Hatch MD Patient is being seen: Ruth Joe Medical Diagnosis: CABG x 5 Date of Onset: 07/29/17 Date of Initial Evaluation: 10/13/17 Date patient was last seen: 11/19/17 Number of treatments: 14 Number of cancellations/No Shows: 1 INTERVENTIONS: Due Date: 12/21/17 Short Term Goals: Patient Assessment: Patient is a 81yr old male. He comes to cardiac rehab following heart surgery--CABG x 5 and N-STEMI. He also reports mild shortness of breath randomly throughout the day following his surgery. He has had a total L knee replacement and is at risk for developing type II diabetes. He currently uses a cane to walk Exercise Assessment: During his 6-minute walk (6MW) test, the patient walked a total of 775ft, averaging to 1.5mph. HR range for his 6MW was between 75-89bpm with SPO2 remaining above 90% on room air. On average he reported an RPE between 3-6 and at minute 4 reported a Dyspnea level of +1 (on a 4 pt scale). While testing exercise equipment, we found both the recumbent bike and NuStep appropriate for his physical capabilities. He had a normal hemodynamic response with HR remaining between 75-80bpm and BP rising to 126/76. He exercises on average between 1.5-2.7 METs Exercise Plan: Goals: Our primary goal will be to increase exercise duration towards the recommended 150 min/week. Once this goal is achieved our next goal will be to increase average exercise intensity towards 4-6 METs. Through this plan we hope to instill confidence in the patient that he may feel comfortable exercising at home by himself on his off days and uplift his morale as he starts to become more physically active again. Exercise Prescription: Mode: Cardiovascular--Recumbent Bike, walking around the track, and NuStep. Strength--combination of free weight, body weight, and resistance band exercises. Frequency: 3 days/week (MWF) for the first two weeks. Followed by at home activity T/Th pending all exercise response is WNL and safe. Duration: Starting with 25 minutes of total exercise per session, and progressing towards 50 minutes/session = 150 min/week. Intensity: THR- 75-90bpm; METs - 2-2.5 progressing towards 4-6; RPE 3-5 Education: Our educational emphasis will be towards slow and gradual progressing leading towards large gains over time. We want the patient to understand that exercise and recovery from surgery is a gradual progression and that these things take time. This will primarily be instill through psychosocial management. We also want the patient to exit the program with the knowledge of how to manager mountain the safety and intensity of exercise at home by himself. Exercise Reassessment (Date: 11/20/17): Since the beginning of the program we have actually seen a steady amount of exercise duration from the patient. From his second day of rehab he was doing 35-40 minutes/session and remains there with not too much progression in intensity. On the NuStep he has remained at level 8 for the past 3-4 weeks, and on the bike he has remained at level 8.1 for 3 weeks now. Our biggest concern for his lack of intensity increments is his inability to maintain exercise within his target HR zone. His current THR is 80-90bpm. He averages heart rates between 60-80bpm while he exercises, which is below his THR and fairly close to his baseline resting HR before he starts exercise. Over the past few weeks we have encouraged him to increase this HR more regularly, trying to emphasize the importance of it for heart health. We noticed that his heart rate is highest while he is walking the track. This leads us to his new exercise prescription: Mode: Recumbent Bike, Arm Ergometer, and Walking the Track. Frequency: 3 days/week (MWF) Time: 40+ minutes continuous exercise/session Intensity: THR 80-100bpm The patient has been consistent with his exercise attendance and reports exercising in his leisure time at home. However, he has been complaining of knee/leg pain which could be stemming from over use/over training. We have emphasized the importance of rest and recovery and recommended massage and stretching to help alleviate pain. Exercise Discharge/Follow-Up (Date: ): Nutrition Assessment: Patient appears to eat a relatively healthy diet. He eats primarily vegetarian--recently transitioning towards the [place] Diet which is high in fruits, vegetables, legumes, and grains--low in fats and animal protein. He is aware of most healthful information but is unsure of the classification of healthy fats and whole grains. He believes you can have your favorite foods in moderation. Nutrition Plan: Goals: Our goals as a staff will be to help support this healthful diet as best we can while instilling the notion that you cannot cut out all of your favorite foods from your diet. We can help provide information on healthful alternatives to his favorite foods and how to eat out at restaurants healthfully too. Intervention: Our intervention includes following up with our patient on a regular basis with dietary questions and education that can help support him as he is developing this new behavior change. Education: Education will include healthful alternatives to some of his comfort foods as well as healthy recipes to help him prepare meals at home. Nutrition Reassessment (Date: 11/20/17): Patients diet has remained relatively steady and what he reports does continue to follow [place]-type heart healthy diets. No changes need to be made at this point. Nutrition Discharge/Follow-Up (Date: ): Psychosocial Assessment: Previous health care providers of the current patient did warn the CR staff that there may be some mild depression on the patient's psychosocial evaluation. While he did not report any during the HADS assessment (2 on Depression, 3 on Anxiety--both low levels), he did voice his opinion on the matter. He was disheartened at first by his failing health and his relative weakness post surgery. He now has appeared to accept that this is natural following such an event and understands that is will be a slow and gradual process. He does appear to be in a healthy state of mind and have realistic expectations. Psychosocial Plan: Goals: Our goals as a cardiac rehab staff will be to provide the social and educational support the patient needs to maintain this optimism and realistic state of mind. He does not have a large support system in the nearby vicinity, and could benefit from the social aspects of Cardiac Rehab. We will also provide him the optimistic view when we do see benefits coming--even if they are small we can help uplift him and point out those progressions so he can see the changes happening. Intervention: We will provide social support through conversation and professional connections on a weekly basis Education: Education will be focused towards what kind of benefits will be witness within 3 months of exercise as well as how consistency through exercise pays off in the end. Psychosocial Reassessment (Date: 11/20/17): While the patient was optimistic and positive about exercise during his first few weeks at rehab, this has since decreased in the more recent weeks. He has become slightly combative and argumentative when we bring information to him. It appears he is living somewhat in the pastbringing up on a routine basis the physical fitness he used to have and the accomplishments he made in the past. We believe he has become more frustrated with his limited physical fitness, range of motion, and regular pain he has been experiencing. Our goal over the next month is to provide more positive reinforcement and to continue to educate the patient on how progress is slow and gradual. Psychosocial Discharge/Follow-Up (Date: ) Physician Signature: Date: MTDD
[2017-11-21 16:23] VITALS: BP 108/67
[2017-11-21 16:24] VITALS: BP 108/64
[2017-11-24 17:32] VITALS: BP 128/70
[2017-11-24 17:33] VITALS: BP 108/68
[2017-11-26 17:24] VITALS: BP 148/80
[2017-11-26 18:00] VITALS: BP 126/68
[2017-11-28 12:58] VITALS: BP 120/72
[2017-11-28 12:59] VITALS: BP 126/68
[2017-12-01 13:12] VITALS: BP 144/86
[2017-12-01 13:13] VITALS: BP 126/68
[2017-12-05 16:59] VITALS: BP_SYST 110; BP_SYST 118; BP_DIAS 60; BP_DIAS 68
[2017-12-08 17:08] VITALS: BP 144/72
[2017-12-08 17:10] VITALS: BP 120/70
[2017-12-10 13:32] VITALS: BP 116/72
[2017-12-10 13:33] VITALS: BP 110/58
[2017-12-12 12:52] VITALS: BP 120/64
[2017-12-12 12:53] VITALS: BP 130/68
[2017-12-15 13:29] VITALS: BP_SYST 104; BP_SYST 130; BP_DIAS 58; BP_DIAS 72
[2017-12-17 13:01] VITALS: BP_SYST 122; BP_DIAS 60; BP_DIAS 62
[2017-12-19 17:51] VITALS: BP_SYST 122; BP_SYST 130; BP_DIAS 62; BP_DIAS 64
--- NOTE | 2017-12-22 14:19 | CARDIAC REHAB PLAN OF CARE ---
Physician: Kallie Hatch MD Patient is being seen: Ruth Joe Medical Diagnosis: CABG x 5 Date of Onset: 07/29/17 Date of Initial Evaluation: 10/13/17 Date patient was last seen: 12/22/17 Number of treatments: 27 Number of cancellations/No Shows: 2 INTERVENTIONS: Due Date: 01/21/18 Patient Assessment: Patient is a 81yr old male. He comes to cardiac rehab following heart surgery--CABG x 5 and N-STEMI. He also reports mild shortness of breath randomly throughout the day following his sugery. He has had a total L knee replacement and is at risk for developinng type II diabetes. He currently uses a cane to walk Exercise Assessment: During his 6-minute walk (6MW) test, the patient walked a total of 775ft, averaging to 1.5mph. HR range for his 6MW was between 75-89bpm with SPO2 remaining above 90% on room air. On average he reported an RPE between 3-6 and at minute 4 reported a Dyspnea level of +1 (on a 4 pt scale). While testing exercise equipment, we found both the recumbent bike and NuStep approrpiate for his physical capabilities. He had a normal hemodynamic response with HR remaining between 75-80bpm and BP rising to 126/76. He exercises on average between 1.5-2.7 METs Exercise Plan: Goals: Our primary goal will be to increase exercise duration towards the recommended 150 min/week. Once this goal is achieved our next goal will be to increase average exercise intensity towards 4-6 METs. Through this plan we hope to instill confidence in the patient that he may feel comfortable exercising at home by himself on his off days and uplift his morale as he starts to become more physically active again. Exercise Prescription: Mode: Cardiovascular--Recumbent Bike, walking around the track, and NuStep. Strength--combination of free weight, body weight, and resistance band exercises. Frequency: 3 days/week (MWF) for the first two weeks. Followed by at home activity T/Th pending all exercise response is WNL and safe. Duration: Starting with 25 minutes of total exercise per session, and progressing towards 50 minutes/session = 150 min/week. Intensity: THR- 75-90bpm; METs - 2-2.5 progressing towards 4-6; RPE 3-5 Education: Our educational emphasis will be towards slow and gradual progressing leading towards large gains over time. We want the patient to understand that exercise and recovery from surgery is a gradual progression and that these things take time. This will primarily be instill through psychosocial management. We also want the patient to exit the program with the knowledge of how to dog show judge the safety and intensity of exercise at home by himself. Exercise Reassessment (Date: 11/20/17): Since the beginning of the program we have actually seen a steady amount of exercise duration from the patient. From his second day of rehab he was doing 35-40 minutes/session and remains there with not too much progression in intensity. On the NuStep he has remained at level 8 for the past 3-4 weeks, and on the bike he has remained at level 8.1 for 3 weeks now. Our biggest concern for his lack of intensity increments is his inability to maintain exercise within his target HR zone. His current THR is 80-90bpm. He averages heart rates between 60-80bpm while he exercises, which is below his THR and fairly close to his baseline resting HR before he starts exercise. Over the past few weeks we have encouraged him to increase this HR more regularly, trying to emphasize the importance of it for heart health. We noticed that his heart rate is highest while he is walking the track. This leads us to his new exercise prescription: Mode: Recumbent Bike, Arm Ergometer, and Walking the Track. Frequency: 3 days/week (MWF) Time: 40+ minutes continuous exercise/session Intensity: THR 80-100bpm The patient has been consistent with his exercise attendance and reports exercising in his leisure time at home. However, he has been complaining of knee/leg pain which could be stemming from over use/over training. We have emphasized the importance of rest and recovery and recommended massage and stretching to help alleviate pain. Exercise Reassessment (Date: 12/22/17): While the patient has been very consistent on regular exercise session attendance, he has plateaued in his exercise intensity and durationmaking little to no progress. He has increased his level on all machines, but has failed to increase his overall MET levelsignifying that while the resistance is higher, he is also moving slower. He also continues to underachieve his THR. While exercising on the machines (recumbent bike, arm ergometer, NuStep) his HR averages between 58-74bpm. While walking around the track his HR averages between 85-95bpma much better cardiovascular exercise. The patient currently only has 3 weeks left of his phase 2 program. We have asked him to set some goals to show progression prior to his discharge from the program. He has set the following goals: 1.Walk 10 laps around the track 2.Achieve > 4.0 METs on the NuStep and Recumbent Bike 3.Achieve >2.5 METs on the arm ergometer Exercise Discharge/Follow-Up (Date: ): Nutrition Assessment: Patient appears to eat a relatively healthy diet. He eats primarily vegetarian--recently transitioning towards the [place] Diet which is high in fruits, vegetables, legumes, and grains--low in fats and animal protein. He is aware of most healthful information but is unsure of the classification of healthy fats and whole grains. He believes you can have your favorite foods in moderation. Nutrition Plan: Goals: Our goals as a staff will be to help support this healthful diet as best we can while instilling the notion that you cannot cut out all of your favorite foods from your diet. We can help provide information on healthful alternatives to his favorite foods and how to eat out at restaurants healthfully too. Intervention: Our intervention includes following up with our patient on a regular basis with dietary questions and education that can help support him as he is developing this new behavior change. Education: Education will include healthful alternatives to some of his comfort foods as well as healthy recipes to help him prepare meals at home. Nutrition Reassessment (Date: 11/20/17): Patients diet has remained relatively steady and what he reports does continue to follow Ornish-type heart healthy diets. No changes need to be made at this point. Nutrition Reassessment (Date: 12/22/17): Patients diet has remained relatively consistent. No changes needed at this time. Nutrition Discharge/Follow-Up (Date: ): Psychosocial Assessment: Previous health care providers of the current patient did warn the CR staff that there may be some mild depression on the patient's psychosocial evaluation. While he did not report any during the HADS assessment (2 on Depression, 3 on Anxiety--both low levels), he did voice his opinion on the matter. He was disheartened at first by his failing health and his relative weakness post surgery. He now has appeared to accept that this is natural following such an event and understands that is will be a slow and gradual process. He does appear to be in a healthy state of mind and have realistic expectations. Psychosocial Plan: Goals: Our goals as a cardiac rehab staff will be to provide the social and educational support the patient needs to maintain this optimism and realistic state of mind. He does not have a large support system in the nearby vicinity, and could benefit from the social aspects of Cardiac Rehab. We will also provide him the optimistic view when we do see benefits coming--even if they are small we can help uplift him and point out those progressions so he can see the changes happening. Intervention: We will provide social support through conversation and professional connections on a weekly basis Education: Education will be focused towards what kind of benefits will be witness within 3 months of exercise as well as how consistency through exercise pays off in the end. Psychosocial Reassessment (Date: 11/20/17): While the patient was optimistic and positive about exercise during his first few weeks at rehab, this has since decreased in the more recent weeks. He has become slightly combative and argumentative when we bring information to him. It appears he is living somewhat in the pastbringing up on a routine basis the physical fitness he used to have and the accomplishments he made in the past. We believe he has become more frustrated with his limited physical fitness, range of motion, and regular pain he has been experiencing. Our goal over the next month is to provide more positive reinforcement and to continue to educate the patient on how progress is slow and gradual. Psychosocial Reassessment (Date: 12/22/17): The patient has become increasingly less optimistic through the cardiac rehab program. He has faced some other physical/medical challenges which have no aided in his positive outlook. However, his lack of exercise progression and lack of willingness to follow directions has led to some degree of frustration on all parties. Up until today we have tried to discuss things with (as the patient would describe) duncang sweetly, passively, and with optimism. However, this has not proven to work so today we tried a different tacticas the patient would say, we discussed this with lili more bluntly and with a tough love method. As of now he has not appeared to taken this method of discussion poorly. Rather it has helped him to set himself some realistic and achievable goals over the next few weeks. We are hoping that having him set himself some goals, rather than us doing it for him, will help increase his motivation. Psychosocial Discharge/Follow-Up (Date: ) Physician Signature: Date: MTDD
[2017-12-22 16:30] VITALS: BP 133/78
[2017-12-22 16:31] VITALS: BP 108/60
[2017-12-24 17:28] VITALS: BP_SYST 112; BP_SYST 132; BP_DIAS 64; BP_DIAS 72
[2017-12-26 12:49] VITALS: BP 126/72
[2017-12-26 12:50] VITALS: BP 110/60
[2017-12-29 12:51] VITALS: BP_SYST 102; BP_SYST 112; BP_DIAS 58; BP_DIAS 62
[2017-12-31 13:06] VITALS: BP_SYST 122; BP_DIAS 60; BP_DIAS 72
[2018-01-05 12:54] VITALS: BP_SYST 114; BP_SYST 116; BP_DIAS 62; BP_DIAS 70
[2018-01-07 16:22] VITALS: BP 108/62
[2018-01-07 16:23] VITALS: BP 102/64
== END 2018-01-11 ==
LOC: CARD 08:00
PROVIDERS: ATTEND Family Medicine
DX: I25.2 Old myocardial infarction (principal); I25.10 Atherosclerotic heart disease of native coronary artery without angina pectoris; I44.0 Atrioventricular block, first degree; Z95.1 Presence of aortocoronary bypass graft; Z96.652 Presence of left artificial knee joint
CPT/HCPCS: 93798

== ENCOUNTER → 2018-01-15 | Outpatient (CLI) | payer MEDICARE ==
[2016-07-24 13:44] VITALS: BMI 28.2
[2018-01-15 11:26] LABS: PLATELET COUNT, AUTOMATED 249 K/uL (150-450)
== END ==
LOC: LAB 11:01
PROVIDERS: ATTEND Family Medicine
DX: Z95.1 Presence of aortocoronary bypass graft (principal); I25.10 Atherosclerotic heart disease of native coronary artery without angina pectoris; I10 Essential (primary) hypertension
CPT/HCPCS: 36415; 82040; 82247; 82310; 82374; 82435; 82565; 82947; 84075; 84132; 84155; 84295; 84450; 84460; 84520; 85025

== ENCOUNTER 2018-01-16 08:00 | Outpatient (RCR) | payer MEDICARE ==
[2016-07-24 13:44] VITALS: BMI 28.2
[2018-01-12 12:59] VITALS: BP 116/74
[2018-01-12 13:00] VITALS: BP 112/64
[2018-01-14 13:25] VITALS: BP 112/70
[~2018-01-16 08:00] MED LIST changes: -LOSA100T69 PO; +LOSA100T75 PO
--- NOTE | 2018-01-16 11:11 | CARDIAC REHAB PLAN OF CARE ---
Physician: Kallie Hatch MD Patient is being seen: JoeRuth loera Medical Diagnosis: CABG x 5 Date of Onset: 07/29/17 Date of Initial Evaluation: 10/13/17 Date patient was last seen: 01/16/18 Number of treatments: 36 Number of cancellations/No Shows:2 INTERVENTIONS: 01/16/18 Exercise Discharge/Follow-Up (Date: 01/16/18): Upon his post-test 6 Minute Walk Test, the patient walked a total of 950ft leading to a 22% increase from baseline. The patient has changed exercise tolerance in the following ways: Duration improved from 30 minutes to now performing at 50 minutes on average/session; Intensity did not vary from beginning to endat the beginning he was averaging 3.5 METs on the Recumbent bike, and recently he has been averaging between 3.0-3.2 METs instead, showing a decrease; his HR started by averaging in the 80-90s and now averages in the 60-70s. However, one major improvement he has experienced is improvement in number of laps walking around the trackhe now does 8/session. This is most likely the most influential factor towards his improvement in his 6MW. The patient will continue on to phase III rehab. Nutrition Discharge/Follow-Up (Date: 01/16/18): The patient comes to rehab eating a relatively healthy diet (Ornish Diet) and continues on it. No need to make any changes as long as it remains constant. Psychosocial Discharge/Follow-Up (Date: 01/16/18): According to his post-test Hospital Anxiety and Depression Scale (HADS) assessment the patient has decreased his self-reported amount of anxiety and depressive symptoms have remained low and constant. He came in reporting anxiety as a 05/07 and now reports 03/09. He also has continuously reported enjoying his time here at rehab and that he himself can witness the changes the program has made on himself physically and mentallyall of which have been positive. Physician Signature: Date: MTDD
== END 2018-01-16 18:00 | disposition home or self-care (01) ==
LOC: CARD 08:00
PROVIDERS: ATTEND Family Medicine
DX: I44.0 Atrioventricular block, first degree (principal); Z95.1 Presence of aortocoronary bypass graft; I25.2 Old myocardial infarction
CPT/HCPCS: 93798

== ENCOUNTER → 2018-04-06 | Outpatient (CLI) | payer MEDICARE ==
[2016-07-24 13:44] VITALS: BMI 28.2
[~2018-04-06] MED LIST changes: -AMLO-111 PO; -AMLO-113 PO; +AMLO-125 PO; +AMLO-127 PO; +BEET; +FLAX100041 PO; +LISI-362 PO
[2018-04-06 09:13] LABS: LDL CHOLESTEROL 125 mg/dl
== END ==
LOC: LAB 08:22
PROVIDERS: ATTEND Internal Medicine Cardiovascular Disease
DX: I25.810 Atherosclerosis of coronary artery bypass graft(s) without angina pectoris (principal)
CPT/HCPCS: 36415; 82310; 82374; 82435; 82465; 82565; 82947; 83718; 83880; 84132; 84295; 84478; 84520

== ENCOUNTER → 2018-04-08 | Outpatient (CLI) | payer MEDICARE ==
[2016-07-24 13:44] VITALS: BMI 28.2
[~2018-04-08] MED LIST changes: +REGADENOSON 0.4 MG/5 ML SYR ONE
--- NOTE | 2018-04-08 16:32 | RT STRESS TEST REPORT ---
FACILITY: [facility] PATIENT NAME: SESAR JACK : [id number] MR: [id number] V: [id number] EXAM DATE: ORDERING PHYSICIAN: YOVANA ESPINOZA TECHNOLOGIST: Haley Acquisition Time: 2018-04-08 15:09:11 Total Exercise Time: 00:01:00 Test Indications: Screening for CAD Medications: SEE NUCLEAR MED SHEET Protocol: LEXISCAN Max HR: 096 BPM 69% of Pred: 138 BPM Max BP: 140/076 mmHG Max Work Load: 1.0 METS He was very limited in his ability to ambulate with intensity, so was unable to get his heart rate to the minimum target. He was switched to a Lexiscan. He had no chest pain or ST depression during the test. He developed an asymptomatic PVC trigeminy fo r a short duration after the infusions. 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 When his heart rate increases to above 80bpm, it becomes difficult to see the P wave and is presumably in the previous T wave. See the nuclear images for details. Confirmed by BLAIRE WINKLER ([id number]) on 04/08/2018 4:32:07 PM Referred By: Overread By: BLAIRE WINKLER
--- NOTE | 2018-04-08 18:23 | RADIOLOGY IMAGING REPORT ---
[place] [facility] [place] Boubacar Ashley : 1935 MR: [id number] V: [id number] EXAM DATE: ORDERING PHYSICIAN: YOVANA ESPINOZA TECHNOLOGIST: Location: [facility] - [place] Patient: Boubacar Ashley : 1935 Visit/Account:[id number] Date of Sevice: 04/08/2018 EXAMINATION: Single isotope SPECT imaging with regadenoson infusion and gated SPECT imaging. DATE OF EXAMINATION: 04/08/2018. DATE OF INTERPRETATION: 04/08/2018. REQUESTING PHYSICIAN: YOVANA ESPINOZA. INDICATION: The patient is a 82-year-old male evaluated for evaluate for obstructive coronary diseas e, patient with a history of 5 vessel CABG. PROCEDURE: After informed consent the patient received an intravenous injection of 11.6 mCi of Tc-99 m sestamibi followed at an appropriate time interval by rest imaging. The patient then subsequently received an intravenous infusion of 0.4 mg of regadenoson per protocol without complication. Resting heart rate was 67 bpm with a peak heart rate of 96 bpm. Blood pressure at rest was 140 / 76 and fol lowing infusion was 140 / 76. Baseline EKG demonstrates sinus rhythm with first-degree AV block, poo r R-wave amplitude in the anterior lateral leads cannot rule out prior anterolateral infarct, T wave inversions in the anterior lateral leads cannot rule out ischemia. Occasional PVCs.. There were no E KG changes of ischemia following infusion. Symptoms were nonspecific. The patient then received an intravenous injection of 29.8 mCi of Tc-99m sestamibi followed by stress imaging. RAW DATA: Examination of the summed raw data revealed a adequate quality study. MYOCARDIAL PERFUSION: The tomographic images demonstrate normal radiotracer uptake with resting and stress imaging. GATED IMAGES: The gated images demonstrate normal LV systolic function with LVEF of 57%, the septum appears to be akinetic. IMPRESSION: 1. No ischemic ECG changes with Lexiscan 2. Normal myocardial perfusion scan. No evidence for myocardial ischemia. 3. Normal LV systolic function; LVEF 57%. 4. Based on the results of this exam, the patient appears to be at low to moderate risk for future ca rdiovascular events given prior history of CAD. Report Dictated By: Geronimo Najera at 04/08/2018 6:06 PM Report E-Signed By: Geronimo Najera at 04/08/2018 6:19 PM WSN:[id number]
== END ==
LOC: RESP 01:06
PROVIDERS: ATTEND Internal Medicine Cardiovascular Disease
DX: I44.30 Unspecified atrioventricular block (principal); I25.709 Atherosclerosis of coronary artery bypass graft(s), unspecified, with unspecified angina pectoris; Z95.1 Presence of aortocoronary bypass graft
CPT/HCPCS: 93017; J2785; 78452; A9500

== ENCOUNTER → 2018-04-27 | Outpatient (CLI) | payer MEDICARE ==
[2016-07-24 13:44] VITALS: BMI 28.2
[~2018-04-27] MED LIST changes: +CITA-137 PO; -REGADENOSON 0.4 MG/5 ML SYR ONE
[2018-04-27 11:20] LABS: PLATELET COUNT, AUTOMATED 221 K/uL (150-450)
== END ==
LOC: LAB 11:05
PROVIDERS: ATTEND Family Medicine
DX: I10 Essential (primary) hypertension (principal); R53.83 Other fatigue
CPT/HCPCS: 36415; 84443; 85025

== ENCOUNTER → 2018-10-06 | Outpatient (CLI) | payer MEDICARE ==
[2016-07-24 13:44] VITALS: BMI 28.2
[~2018-10-06] MED LIST changes: +CEFPR500PT PO; +CETI5TAB25 PO; +CHOL500016 PO; +CYAN1TAB68 PO; +DOXY-179 PO; +DOXY-181 PO; +FLUT16SP19 NS; +MELA1TAB2 PO; +METH4TAB66 PO; +OMEG-96 PO; +SAW/1TAB2; +TAMS0.4C25 PO; -TRAZ50TA34 PO; +TRAZ50TA52 PO
--- NOTE | 2018-10-06 13:39 | RADIOLOGY IMAGING REPORT ---
[place] [facility] [place] NAME: Boubacar Ashley : 1935 MR: [id number] V: [id number] EXAM DATE: ORDERING PHYSICIAN: ELDER BAILEY TECHNOLOGIST: Location: [facility] - [place] Patient: Boubacar Ashley : 1935 Visit/Account:[id number] Date of Sevice: 10/06/2018 EXAMINATION: CT of the Paranasal Sinuses HISTORY: Sinusitis. TECHNIQUE: Contiguous axial images were obtained through the paranasal sinuses without intravenous c ontrast administration. Coronal and sagittal reformatted images were obtained from the axial source d margie. One of the following dose optimization techniques was utilized in the performance of this exam: Autom ated exposure control; adjustment of the mA and/or kV according to the patient's size; or use of an i terative reconstruction technique. Specific details can be referenced in the facility's radiology C T exam operational policy. COMPARISON: Head CT dated 08/28/2017. FINDINGS: Maxillary sinuses: Minimal mucosal thickening in the right maxillary sinus. The left maxillary sinus is completely opacified. Frontal sinuses: Minimal mucosal thickening in the right frontal sinus. The left frontal sinus is ne kanu completely opacified. Ethmoid air cells: Nearly completely opacified left anterior ethmoid air cells. Otherwise negative. Sphenoid sinuses: The right sphenoid sinus is dominant. Otherwise negative. Ostiomeatal units: The left ostiomeatal unit is opacified. Nasal septum / nasal cavity: Rightward nasal septal deviation. Orbits: Negative. Visualized intracranial contents/soft tissues: Mild to moderate generalized brain parenchymal volume loss. TMJs: Negative. Periapical lucencies surrounding the roots of the right second maxillary premolar, left first maxilla ry premolar, and left first maxillary molar. IMPRESSION: 1. Left ostiomeatal unit pattern of sinusitis. The left maxillary sinus is completely opacified and t he left frontal sinus and anterior ethmoid air cells are nearly completely opacified. 2. Minimal mucosal thickening in the right maxillary and frontal sinuses. 3. Rightward nasal septal deviation. 4. Periapical lucencies surrounding the roots of the right second maxillary premolar, left first maxi llary premolar, and left first maxillary molar. Report Dictated By: Ezra Holt MD at 10/06/2018 1:25 PM Report E-Signed By: Ezra Holt MD at 10/06/2018 1:31 PM WSN:[id number]
== END ==
LOC: CT 07:06
PROVIDERS: ATTEND Physician Assistant
DX: J32.0 Chronic maxillary sinusitis (principal); J34.2 Deviated nasal septum
CPT/HCPCS: 70486